=== PATIENT | male | born 1965 | race Caucasian/White ===

== ENCOUNTER 2016-05-08 17:45 | Emergency (ER) | payer OTHER ==
[2016-05-08 18:05] VITALS: BP 138/93
--- NOTE | 2016-05-08 18:35 | EDM.PDOC ---
<Obdulio Coughlin M - Last Filed: 05/08/16 18:36> ED HPI GENERAL MEDICAL PROBLEM - General Chief Complaint: General Stated Complaint: NOT FEELING GOOD Time Seen by Provider: 05/08/16 18:30 Source of Information: Reports: Patient History Limitations: Reports: No limitations - History of Present Illness INITIAL COMMENTS - FREE TEXT/NARRATIVE: This 51 yo male patient reports to the ED with a 6 month history of feeling tired, increased upper abdominal pain today and pain in his groin. The patient reports he has had his PTSD medications adjusted by [facility] with no changes. The patient reports he has been taking a lot of ibuprofen for his pulled groin ( work comp injury). The patient reports he has been drinking a lot of Coke to attempt to keep him awake. The patient reports he was seen on Friday (05/06/16) in [facility], but has not received any results at this time. The patient also reports he has had some blood in his urine and some sharp left flank pain over the past 2 days. Onset: gradual Duration: Constant, Getting worse Location: Reports: abdomen, back (left flank), other (right groin) Quality: Reports: Ache, Dull Severity: moderate Improves with: Reports: None Worsens with: Reports: None Treatments MATTE CUTTER: Reports: NSAIDS Left Shoulder Pain Score (Numeric/FACES): 3 - Related Data Allergies Allergy/AdvReac Type Severity Reaction Status Date / Time bupropion HCl Allergy Agitation Verified 05/08/16 18:00 [From Wellbutrin] Home Meds: Home Meds ALPRAZolam [Xanax] 0.5 mg PO TID PRN 08/09/13 [History] DULoxetine [Cymbalta] 60 mg PO DAILY 05/08/16 [History] Propranolol [Inderal] 30 mg PO BID 05/08/16 [History] busPIRone [Buspar] 10 mg PO BID 05/08/16 [History] Past Medical History Cardiovascular History: Reports: Hypertension Respiratory History: Reports: None Gastrointestinal History: Reports: Irritable bowel syndrome Genitourinary History: Reports: None Musculoskeletal History: Reports: None Neurological History: Reports: Concussion Psychiatric History: Reports: Anxiety, Depression, PTSD Endocrine/Metabolic History: Reports: None Hematologic History: Reports: None Immunologic History: Reports: None Oncologic (Cancer) History: Reports: None Dermatologic History: Reports: None - Infectious Disease History Infectious Disease History: Reports: Chicken pox, Measles, Mumps - Past Surgical History Head Surgeries/Procedures: Reports: None HEENT Surgical History: Reports: Tonsillectomy Social & Family History - Tobacco Use Smoking Status *Q: Current Every Day Smoker Years of Tobacco use: 30 Packs/Tins Daily: 1 Second Hand Smoke Exposure: No - Caffeine Use Caffeine Use: Reports: Soda - Alcohol Use Days Per Week of Alcohol Use: 2 - Recreational Drug Use Recreational Drug Use: No Drug Use in Last 12 Months: No - Living Situation & Occupation Living situation: Reports: , with family Occupation: employed ED ROS GENERAL - Review of Systems Review Of Systems: See Below Constitutional: Reports: fatigue HEENT: Reports: No symptoms Respiratory: Reports: No Symptoms Cardiovascular: Reports: No symptoms Endocrine: Reports: fatigue GI/Abdominal: Reports: Abdominal pain (epigastric), Diarrhea, Nausea : Reports: flank pain (left ), hematuria Musculoskeletal: Reports: no symptoms Skin: Reports: no symptoms Neurological: Reports: No Symptoms Psychiatric: Reports: Depression Hematologic/Lymphatic: Reports: no symptoms Immunologic: Reports: no symptoms ED EXAM, GENERAL - Physical Exam Exam: See Below Exam Limited By: No limitations General Appearance: alert, WD/WN, lethargic, moderate distress Eye Exam: bilateral eye: EOMI, normal inspection, PERRL Ears: normal external exam, normal canal, hearing grossly normal, normal TMs Nose: normal inspection, normal mucosa, no blood Throat/Mouth: Normal inspection, Normal lips, Normal teeth, Normal gums, Normal oropharynx, Normal voice, No airway compromise Head: atraumatic, normocephalic Neck: normal inspection, supple, non-tender, full range of motion Respiratory/Chest: no respiratory distress, lungs clear, normal breath sounds, no accessory muscle use, chest non-tender Cardiovascular: normal peripheral pulses, regular rate, rhythm, no edema, no gallop, no JVD, no murmur, no rub GI/Abdominal: normal bowel sounds, soft, no organomegaly, no distention, no abnormal bruit, no mass, tender (epigastric area) (Male) Exam: Deferred Rectal (Males) Exam: Deferred Back Exam: CVA tenderness (L) Extremities: normal inspection, normal range of motion, non-tender, normal capillary refill, no pedal edema Neurological: alert, oriented, CN II-XII intact, normal cognition, normal gait, normal reflexes, no motor/sensory deficits Psychiatric: depressed mood, flat affect Skin Exam: Warm, Dry, Intact, Normal color, No rash Lymphatic: no adenopathy Course - Vital Signs Last Recorded V/S: Last Vital Signs Temp 96.4 F 05/08/16 17:52 Pulse 89 05/08/16 17:52 Resp 16 05/08/16 17:52 BP 138/93 H 05/08/16 18:05 Pulse Ox 98 05/08/16 17:52 - Orders/Labs/Meds Labs: Laboratory Tests 05/08/16 05/08/16 05/08/16 Range/Units 18:40 18:40 18:51 WBC 8.5 (5.0-10.0) 10^3/uL RBC 4.83 (4.6-6.2) 10^6/uL Hgb 15.2 (14.0-18.0) g/dL Hct 43.3 (40.0-54.0) % MCV 89.6 (80-100) fL MCH 31.5 (27.0-34.0) pg MCHC 35.1 H (33.0-35.0) g/dL Plt Count 239 (150-450) 10^3/uL Neut % (Auto) 60.4 (42.2-75.2) % Lymph % (Auto) 26.3 (20.5-50.1) % [place] % (Auto) 10.1 H (2-8) % Eos % (Auto) 2.8 (1.0-3.0) % Baso % (Auto) 0.4 (0.0-1.0) % Sodium 132 L (135-145) mmol/L Potassium 4.1 (3.6-5.0) mmol/L Chloride 95 L (101-111) mmol/L Carbon Dioxide 30.0 (21.0-31.0) mmol/L Anion Gap 11.1 BUN 13 (7-18) mg/dL Creatinine 0.9 (0.6-1.3) mg/dL Est Cr Clr Drug Dosing 99.14 mL/min Estimated GFR (MDRD) > 60 BUN/Creatinine Ratio 14.44 Glucose 90 (74-105) mg/dL Calcium 8.9 (8.4-10.2) mg/dl Total Bilirubin 0.8 (0.2-1.0) mg/dL AST 22 (10-42) IU/L ALT 20 (10-60) IU/L Alkaline Phosphatase 73 (42-121) IU/L Total Protein 7.5 (6.7-8.2) g/dl Albumin 4.3 (3.2-5.5) g/dl Globulin 3.2 Albumin/Globulin Ratio 1.34 Amylase 40 (28-100) U/L Lipase 28 (22-51) U/L Urine Color (YELLOW) Urine Appearance (CLEAR) Urine pH (5.0-9.0) Ur Specific [place] (1.005-1.030) Urine Protein (NEGATIVE) Urine Glucose (UA) (NEGATIVE) Urine Ketones (NEGATIVE) Urine Occult Blood (NEGATIVE) Urine Nitrite (NEGATIVE) Urine Bilirubin (NEGATIVE) Urine Urobilinogen (0.2-1.0) mg/dL Ur Leukocyte Esterase (NEGATIVE) Urine RBC /HPF Urine WBC (0-5/HPF) /HPF Ur Epithelial Cells /HPF Urine Bacteria (0-FEW/HPF) /HPF Urine Opiates Screen Negative (NEGATIVE) Ur Oxycodone Screen Negative (NEGATIVE) Urine Methadone Screen Negative (NEGATIVE) Acetaminophen < 10.0 Ur Barbiturates Screen Negative (NEGATIVE) U Tricyclic Antidepress Negative (NEGATIVE) Ur Phencyclidine Scrn Negative (NEGATIVE) Ur Amphetamine Screen Negative (NEGATIVE) U Methamphetamines Scrn Negative (NEGATIVE) Urine MDMA Screen Negative (NEGATIVE) U Benzodiazepines Scrn Negative (NEGATIVE) Urine Cocaine Screen Negative (NEGATIVE) U Marijuana (THC) Screen Negative (NEGATIVE) Ethyl Alcohol < 5 mg/dL 05/08/16 Range/Units 18:51 WBC (5.0-10.0) 10^3/uL RBC (4.6-6.2) 10^6/uL Hgb (14.0-18.0) g/dL Hct (40.0-54.0) % MCV (80-100) fL MCH (27.0-34.0) pg MCHC (33.0-35.0) g/dL Plt Count (150-450) 10^3/uL Neut % (Auto) (42.2-75.2) % Lymph % (Auto) (20.5-50.1) % [place] % (Auto) (2-8) % Eos % (Auto) (1.0-3.0) % Baso % (Auto) (0.0-1.0) % Sodium (135-145) mmol/L Potassium (3.6-5.0) mmol/L Chloride (101-111) mmol/L Carbon Dioxide (21.0-31.0) mmol/L Anion Gap BUN (7-18) mg/dL Creatinine (0.6-1.3) mg/dL Est Cr Clr Drug Dosing mL/min Estimated GFR (MDRD) BUN/Creatinine Ratio Glucose (74-105) mg/dL Calcium (8.4-10.2) mg/dl Total Bilirubin (0.2-1.0) mg/dL AST (10-42) IU/L ALT (10-60) IU/L Alkaline Phosphatase (42-121) IU/L Total Protein (6.7-8.2) g/dl Albumin (3.2-5.5) g/dl Globulin Albumin/Globulin Ratio Amylase (28-100) U/L Lipase (22-51) U/L Urine Color Yellow (YELLOW) Urine Appearance Clear (CLEAR) Urine pH 6.0 (5.0-9.0) Ur Specific [place] 1.020 (1.005-1.030) Urine Protein Negative (NEGATIVE) Urine Glucose (UA) Negative (NEGATIVE) Urine Ketones Negative (NEGATIVE) Urine Occult Blood Moderate H (NEGATIVE) Urine Nitrite Negative (NEGATIVE) Urine Bilirubin Negative (NEGATIVE) Urine Urobilinogen 0.2 (0.2-1.0) mg/dL Ur Leukocyte Esterase Negative (NEGATIVE) Urine RBC 0-5 /HPF Urine WBC 0-5 (0-5/HPF) /HPF Ur Epithelial Cells Rare /HPF Urine Bacteria Few (0-FEW/HPF) /HPF Urine Opiates Screen (NEGATIVE) Ur Oxycodone Screen (NEGATIVE) Urine Methadone Screen (NEGATIVE) Acetaminophen Ur Barbiturates Screen (NEGATIVE) U Tricyclic Antidepress (NEGATIVE) Ur Phencyclidine Scrn (NEGATIVE) Ur Amphetamine Screen (NEGATIVE) U Methamphetamines Scrn (NEGATIVE) Urine MDMA Screen (NEGATIVE) U Benzodiazepines Scrn (NEGATIVE) Urine Cocaine Screen (NEGATIVE) U Marijuana (THC) Screen (NEGATIVE) Ethyl Alcohol mg/dL Meds: Medications Discontinued Medications Generic Name Dose Route Start Last Admin Trade Name Freq PRN Reason Stop Dose Admin Al Hydroxide/Mg Hydroxide 30 ml 05/08/16 20:22 05/08/16 20:25 Gi Cocktail PO 05/08/16 20:23 30 ml ONETIME ONE Administration Departure - Departure Disposition: Home, Self-Care 01 Clinical Impression: Hematuria Acid reflux disease Qualifiers: Esophagitis presence: without esophagitis Qualified Code(s): K21.9 - Gastro- esophageal reflux disease without esophagitis Fatigue Qualifiers: Fatigue type: chronic, unspecified Qualified Code(s): R53.82 - Chronic fatigue , unspecified Instructions: Gastroesophageal Reflux Disease, Adult, [id number] Forms: ED Department Discharge Additional Instructions: bland diet omeprozole 20mg one daily [facility] up with [facility], discuss medications and ongoing hematuria for past 3 years <Doretha Sanders - Last Filed: 05/08/16 21:27> Departure - Departure Time of Disposition: 21:24 Condition: good
[2016-05-08 19:05] LABS: CHLORIDE,CL 95 mmol/L (101-111); SODIUM,NA 132 mmol/L (135-145)
[2016-05-08 19:06] LABS: ACETAMINOPHEN < 10.0
[2016-05-08] MEDS ORDERED: GI Cocktail Oral Solution 30 ML PO ONE (20:22)
== END 2016-05-08 21:34 | disposition home or self-care (01) ==
LOC: DL.ED 17:45
DX: K21.9 Gastro-esophageal reflux disease without esophagitis (principal); R31.9 Hematuria, unspecified; R53.82 Chronic fatigue, unspecified; I10 Essential (primary) hypertension; F41.9 Anxiety disorder, unspecified; F32.9 Major depressive disorder, single episode, unspecified; F17.210 Nicotine dependence, cigarettes, uncomplicated; Z88.8 Allergy status to other drugs, medicaments and biological substances
CPT/HCPCS: 36415; 80053; 80305; 81001; 82150; 83690; 85025; 99283; A9270; G0480

== ENCOUNTER 2016-05-12 16:54 | Observation (INO) | payer OTHER ==
--- NOTE | 2016-05-12 17:59 | EDM.PDOC ---
<Mildred Lieberman - Last Filed: 05/12/16 19:11> ED HPI GENERAL MEDICAL PROBLEM - General Chief Complaint: General Stated Complaint: HE IS NOT FEELING GOOD Time Seen by Provider: 05/12/16 17:55 Source of Information: Reports: Patient History Limitations: Reports: No limitations - History of Present Illness INITIAL COMMENTS - FREE TEXT/NARRATIVE: Pt states that he has "not felt good " in the past few days. states that he was here last week and diagnosed with kidney stone. Now c/o lower abdominal burning and pain in legs. States that he is also having dizziness and just feels bad. Was started on blood pressure medication last week. Onset: today Onset Date: 05/12/16 Duration: Getting worse Location: Reports: abdomen Quality: Reports: Burning Improves with: Reports: None Worsens with: Reports: None Associated Symptoms: Reports: no other symptoms Right Flank Pain Score (Numeric/FACES): 4 - Related Data Allergies Allergy/AdvReac Type Severity Reaction Status Date / Time bupropion HCl Allergy Agitation Verified 05/08/16 18:00 [From Wellbutrin] Home Meds: Home Meds DULoxetine [Cymbalta] 60 mg PO DAILY 05/08/16 [History] Propranolol [Inderal] 30 mg PO DAILY 05/08/16 [History] busPIRone [Buspar] 10 mg PO BID 05/08/16 [History] Chlorthalidone 50 mg PO DAILY 05/12/16 [History] ClonazePAM [KlonoPIN] 1 tab PO TID PRN 05/12/16 [History] Omeprazole 1 tab PO DAILY 05/12/16 [History] Past Medical History Cardiovascular History: Reports: Hypertension Respiratory History: Reports: None Gastrointestinal History: Reports: GERD, Irritable bowel syndrome Genitourinary History: Reports: Renal calculus Musculoskeletal History: Reports: Back pain, chronic Neurological History: Reports: Concussion Psychiatric History: Reports: Anxiety, Depression, PTSD Endocrine/Metabolic History: Reports: None Hematologic History: Reports: None Immunologic History: Reports: None Oncologic (Cancer) History: Reports: None Dermatologic History: Reports: None - Infectious Disease History Infectious Disease History: Reports: Chicken pox, Measles, Mumps - Past Surgical History Head Surgeries/Procedures: Reports: None HEENT Surgical History: Reports: Tonsillectomy Social & Family History - Family History Family Medical History: Noncontributory - Tobacco Use Smoking Status *Q: Current Every Day Smoker Years of Tobacco use: 30 Packs/Tins Daily: 1 Used Tobacco, but Quit: No Second Hand Smoke Exposure: Yes - Caffeine Use Caffeine Use: Reports: Soda - Alcohol Use Days Per Week of Alcohol Use: 2 Number of Drinks Per Day: 2 Total Drinks Per Week: 4 - Recreational Drug Use Recreational Drug Use: No Drug Use in Last 12 Months: No - Living Situation & Occupation Living situation: Reports: , with family Occupation: employed ED ROS GENERAL - Review of Systems Review Of Systems: See Below Constitutional: Reports: malaise Endocrine: Reports: fatigue GI/Abdominal: Reports: Abdominal pain Neurological: Reports: Dizziness ED EXAM, GENERAL - Physical Exam Exam: See Below Exam Limited By: No limitations General Appearance: alert, WD/WN, no apparent distress Eye Exam: bilateral eye: PERRL Head: atraumatic, normocephalic Neck: normal inspection, supple, non-tender, full range of motion Respiratory/Chest: no respiratory distress, lungs clear, normal breath sounds, no accessory muscle use, chest non-tender Cardiovascular: normal peripheral pulses, regular rate, rhythm, no edema, no gallop, no JVD, no murmur, no rub GI/Abdominal: normal bowel sounds, soft, no organomegaly, no distention, no abnormal bruit, no mass, tender (lower abdomen) Back Exam: full range of motion, CVA tenderness (R) Neurological: alert, oriented, CN II-XII intact, normal cognition, normal gait, normal reflexes, no motor/sensory deficits Course - Vital Signs Last Recorded V/S: Last Vital Signs Temp 36.4 C 05/12/16 17:03 Pulse 93 05/12/16 17:03 Resp 20 05/12/16 17:03 BP 140/103 H 05/12/16 17:03 Pulse Ox 100 05/12/16 17:03 - Orders/Labs/Meds Orders: Active Orders 24 hr Category Date Time Status BMP [BASIC METABOLIC PANEL,BMP] [CHEM] Stat Lab 05/12/16 19:45 Ordered Saline Lock Insert [OM.PC] Stat Oth 05/12/16 18:05 Ordered Labs: Laboratory Tests 05/12/16 05/12/16 05/12/16 Range/Units 18:08 18:08 18:30 WBC 6.9 (5.0-10.0) 10^3/uL RBC 4.73 (4.6-6.2) 10^6/uL Hgb 14.9 (14.0-18.0) g/dL Hct 40.0 (40.0-54.0) % MCV 84.6 (80-100) fL MCH 31.5 (27.0-34.0) pg MCHC 37.3 H (33.0-35.0) g/dL Plt Count 222 (150-450) 10^3/uL Neut % (Auto) 55.0 (42.2-75.2) % Lymph % (Auto) 27.4 (20.5-50.1) % [place] % (Auto) 13.9 H (2-8) % Eos % (Auto) 3.3 H (1.0-3.0) % Baso % (Auto) 0.4 (0.0-1.0) % Sodium 123 L (135-145) mmol/L Potassium 3.1 L (3.6-5.0) mmol/L Chloride 86 L (101-111) mmol/L Carbon Dioxide 28.0 (21.0-31.0) mmol/L Anion Gap 12.1 BUN 9 (7-18) mg/dL Creatinine 0.7 (0.6-1.3) mg/dL Est Cr Clr Drug Dosing TNP Estimated GFR (MDRD) > 60 BUN/Creatinine Ratio 12.85 Glucose 96 (74-105) mg/dL Calcium 8.8 (8.4-10.2) mg/dl Total Bilirubin 0.8 (0.2-1.0) mg/dL AST 19 (10-42) IU/L ALT 19 (10-60) IU/L Alkaline Phosphatase 77 (42-121) IU/L Total Protein 7.0 (6.7-8.2) g/dl Albumin 4.0 (3.2-5.5) g/dl Globulin 3.0 Albumin/Globulin Ratio 1.33 Urine Color Yellow (YELLOW) Urine Appearance Clear (CLEAR) Urine pH 8.5 (5.0-9.0) Ur Specific [place] 1.015 (1.005-1.030) Urine Protein Negative (NEGATIVE) Urine Glucose (UA) Negative (NEGATIVE) Urine Ketones Negative (NEGATIVE) Urine Occult Blood Small H (NEGATIVE) Urine Nitrite Negative (NEGATIVE) Urine Bilirubin Negative (NEGATIVE) Urine Urobilinogen 0.2 (0.2-1.0) mg/dL Ur Leukocyte Esterase Negative (NEGATIVE) Urine RBC 5-10 H /HPF Urine WBC 0-5 (0-5/HPF) /HPF Ur Epithelial Cells Rare /HPF Urine Bacteria Few (0-FEW/HPF) /HPF Meds: Medications Discontinued Medications Generic Name Dose Route Start Last Admin Trade Name Cedricq PRN Reason Stop Dose Admin Sodium Chloride 1,000 mls @ 999 mls/hr 05/12/16 18:05 05/12/16 18:24 Normal Saline IV 05/12/16 19:05 999 mls/hr .BOLUS ONE Administration - Re-Assessments/Exams Free Text/Narrative Re-Assessment/Exam: 05/12/16 19:[address] Holcomb for potential admission, will come to evaluate patient 05/12/16 19:11 Dr. Holcomb, wants repeat BMP after 1 liter fluid is in. wants to be called with results. Departure - Departure Disposition: Refer to Observation Clinical Impression: Hyponatremia syndrome, Hypokalemia Forms: ED Department Discharge <Manav Cramer - Last Filed: 05/12/16 19:18> Course - Re-Assessments/Exams Free Text/Narrative Re-Assessment/Exam: 05/12/16 19:[address] Kim who kindly admitted Pt to observation Departure - Departure Time of Disposition: 19:16 Condition: good
[2016-05-12] MEDS ORDERED: Sodium Chloride 0.9% 1,000 ML IV ONE ×2 (18:05→19:24)
[2016-05-12 18:33] LABS: CHLORIDE,CL 86 mmol/L (101-111); SODIUM,NA 123 mmol/L (135-145)
[2016-05-12] MEDS ORDERED: Ketorolac 30 MG/ML SDV IVPUSH ONE (19:24)
[2016-05-12] MEDS ORDERED: Ondansetron 4 MG/2 ML SDV IVPUSH PRN (19:25)
[2016-05-12] MEDS ORDERED: Ketorolac 30 MG/ML SDV IM PRN (19:25)
[2016-05-12] MEDS ORDERED: Potassium Chloride 10% 20 MEQ/15 ML Soln 15 ML UD Cup PO ONE (19:31)
[2016-05-12] MEDS ORDERED: ClonazePAM 0.5 MG Tab PO ONE (19:35)
[2016-05-12] MEDS: Sodium Chloride 0.9% 1,000 ML IV SCH (20:01)
[2016-05-12 20:09] LABS: CHLORIDE,CL 86 mmol/L (101-111); SODIUM,NA 123 mmol/L (135-145)
[2016-05-12] MEDS: Heparin Sodium 5,000 Units/ML Vial SUBCUT SCH (21:42)
[2016-05-13] MEDS: Sodium Chloride 0.9% 1,000 ML IV SCH ×2 (02:47→11:00)
[2016-05-13] MEDS: Heparin Sodium 5,000 Units/ML Vial SUBCUT SCH ×2 (05:53→14:07)
[2016-05-13 07:06] LABS: CHLORIDE,CL 89 mmol/L (101-111); SODIUM,NA 126 mmol/L (135-145)
[2016-05-13] MEDS ORDERED: Ibuprofen 400 MG Tab PO PRN (09:04)
[2016-05-13] MEDS ORDERED: ClonazePAM 0.5 MG Tab PO PRN (09:22)
[2016-05-13] MEDS ORDERED: DULoxetine 30 MG Cap PO SCH (09:45)
[2016-05-13] MEDS ORDERED: busPIRone 15 MG Tab PO SCH (09:45)
[2016-05-13] MEDS: Sodium Chloride 1 GM Tab PO SCH ×2 (10:46→14:04)
[2016-05-13 11:04] VITALS: BP 141/89
--- NOTE | 2016-05-13 13:59 | HP ---
CHIEF COMPLAINT: Generalized body malaise. HISTORY OF PRESENTING ILLNESS: Mr. Ricardo Murguia is a 51-year-old man with medical history of hypertension, depression, anxiety disorder. The patient presented to the emergency room because of generalized body malaise. This has been going on for 2 days. Complains of dizziness, which is lightheadedness, it happens mostly when he stands up and better when laying down. Denies having chest pain. Denies abdominal pain, dysuria, frequency, or micturition. No diarrhea. No constipation. The patient was recently seen in [facility], had x- ray that suggested possible kidney stones. He was told that he should come back to the clinic to be ordered for a CT scan (patient refused to have it done ordered here. I offered him to do that). REVIEW OF SYSTEMS: A 10-point review of system performed. No other pertinent findings except as noted above. PAST MEDICAL HISTORY: 1. Depression. 2. Hypertension. 3. Anxiety. SOCIAL HISTORY: Does smoke everyday. No significant alcohol use. FAMILY HISTORY: Reviewed and considered noncontributory. OBJECTIVE: Vital Signs: Reviewed. Blood pressure is within normal limits. General: The patient is alert, oriented to place, time, and person. Head: Atraumatic and normocephalic. Ear, Nose, and Throat: Unremarkable. Neck: Supple. Chest: Clear to auscultation. CVS: Regular rate and rhythm. Abdomen: Soft, nontender. Extremities: No pedal edema. No finger clubbing. Skin: No rash. Neuro: Grossly nonfocal. Endocrine: No thyromegaly. LABORATORY DATA: Sodium is 123, potassium is 3.4. ASSESSMENT: 1. Hyponatremia, this is likely due to diuretic hydrochlorothiazide. 2. Hypokalemia. Serum potassium is low down to 3.4. Again, this is likely due to hydrochlorothiazide. 3. Generalized body malaise. Probably related to electrolyte abnormalities. 4. Hypertension, has been on propranolol. Recently, hydrochlorothiazide was added. PLAN: 1. Discontinue hydrochlorothiazide. 2. Start intravenous normal saline. 3. Obtain repeat basic metabolic panel. 4. Correct potassium deficits. 5. Non-narcotic analgesics for headaches. 6. Chart reviewed, discussed with emergency room provider. [facility] /[id number]
[2016-05-13 14:32] LABS: CHLORIDE,CL 97 mmol/L (101-111); SODIUM,NA 131 mmol/L (135-145)
--- NOTE | 2016-05-14 04:50 | DISCH ---
FINAL DIAGNOSES: 1. Hyponatremia. 2. Hypokalemia. 3. Low back pain. 4. Dizziness. 5. Hypertension. SUMMARY OF HOSPITAL COURSE: Ricardo Murguia is a 51-year-old man who presented to the emergency room with complaint of generalized body malaise, headache, dizziness which he described as lightheadedness. The lightheadedness was worse when he stood up. He was not having chest pain. He did indicate he was having low back pain but has been told by PA that he has kidney stones. The patient refused to have CT scan of the abdomen. He insisted that PA should be the one to order it (because of financial reasons). The patient got admitted to the hospital, was started on intravenous fluid normal saline. His sodium improved. He was also started on salt supplement and we discontinued hydrochlorothiazide that was not restarted. The patient's blood pressure is within acceptable limit. He will be discharged home and has been advised to follow up with PA and primary care provider. He will have repeat basic metabolic panel as outpatient. PHYSICAL EXAMINATION: General: At discharge, the patient is alert, oriented to place, time, and person. Head: Atraumatic and normocephalic. Ear, Nose, and Throat: Unremarkable. Neck: Supple. Chest: Clear to auscultation. Extremities: No pedal edema. Skin: No rash. [facility] /[id number]
[2016-05-14] MEDS ORDERED: Omeprazole 20 MG Cap.CR PO SCH (06:00)
[2016-05-14] MEDS ORDERED: Propranolol 10 MG Tab PO SCH (09:00)
== END 2016-05-13 15:55 | disposition home or self-care (01) ==
LOC: DL.ED 16:54 → DL.MS 19:25 → UNDOADMOB 19:40 → DL.MS 19:40
PROVIDERS: ADMIT Hospitalist; ATTEND Hospitalist
DX: E22.2 Syndrome of inappropriate secretion of antidiuretic hormone (principal); E87.6 Hypokalemia; I10 Essential (primary) hypertension; F41.8 Other specified anxiety disorders; R42 Dizziness and giddiness; F17.210 Nicotine dependence, cigarettes, uncomplicated
CPT/HCPCS: 36415; 80048; 80053; 81001; 85025; 96361; 96372; 96374; 99284; A9270; G0378; J1644; J1885; J7030

== ENCOUNTER 2016-10-31 06:13 | Day surgery (SDC) | payer OTHER ==
[~2016-10-31 06:13] MED LIST: Dextrose 5%-0.45% NaCl 1,000 ML IV SCH; Sodium Chloride 0.9% 10 ML Syringe FLUSH PRN
[2016-10-31] MEDS ORDERED: Midazolam 1 MG/ML 2 ML SDV IV ONE ×7 (06:14→08:22)
[2016-10-31] MEDS ORDERED: fentaNYL 100 MCG/2 ML SDV IV ONE ×4 (06:14→08:23)
[2016-10-31] MEDS ORDERED: Midazolam 1 MG/ML 2 ML SDV ONE (06:16)
[2016-10-31] MEDS ORDERED: fentaNYL 100 MCG/2 ML SDV ONE (06:17)
[2016-10-31 09:08] VITALS: BP 94/61
--- NOTE | 2016-10-31 09:36 | OR ---
DATE: 10/31/2016 PROCEDURE: Total colonoscopy and multiple cold snare polypectomies. INSTRUMENT USED: [id number] Olympus video colonoscope. PREMEDICATIONS: Fentanyl 150 mcg intravenous, Versed 4 mg intravenous. Nasal O2 cannula. The procedure was done under pulse oximetry, BP recording, and bus person dishwasher. INDICATION: Screening colonoscopic examination is done for detection of any polypoid lesions and removal, endoscopic hemostasis therapy if needed. DESCRIPTION OF PROCEDURE: Initial rectal exam was unremarkable. Rigid anoscopy was normal. The colonoscope was passed with ease. Few scattered diverticula were noted in the distal left colon. In the sigmoid colon, 3-mm sized benign- appearing polyp was noted, photograph was taken, cold snare polypectomy was done. The tissue was retrieved and sent for histopathology. The colonoscope was passed with ease up to the ileocecal area, photographs were taken of the normal-appearing cecum identified by landmarks of appendiceal orifice and double- bulged ileocecal folds. No bleeding was noted from any of the visualized areas at the commencement of the exam. No stricture. No vascular ectasia. No large isolated ulcerations seen. No evidence of diffuse inflammatory bowel disease in the form of friability, contact bleeding, or ulcerations. Probing the proximal sides of folds and flexures, using adequate distention and clearing up the stool material, withdrawal of the scope was made. A 3-mm sized benign-appearing polyps were noted in the proximal ascending colon, and hepatic flexure area, cold snare polypectomies were done, the tissues were retrieved and sent for any histopathology. No bleeding was noted from any of the visualized areas at the completion of examination. IMPRESSION: 1. Diverticulosis. 2. Multiple diminutive colonic polyps. The patient tolerated the procedure well. [facility] /[id number]
--- NOTE | 2016-10-31 10:42 | LETTER ---
10/31/2016 Dominick Arroyo MD [address] [id number] RE: RICARDO MURGUIA : [address] Arroyo: Mr. Ricardo Murguia had colonoscopic examination done this morning and he tolerated the procedure well. I herewith send a copy of the endoscopy note and photographs for your review. Thank you. Sincerely, [facility] /[id number]
== END 2016-10-31 10:37 | disposition home or self-care (01) ==
LOC: DL.ENDO 06:13
PROVIDERS: ATTEND Internal Medicine Gastroenterology
PROC: 0DBL8ZZ Excision of Transverse Colon, Via Natural or Artificial Opening Endoscopic (ICD-10-PCS; principal; 2016-10-31)
PROC: 0DBK8ZZ Excision of Ascending Colon, Via Natural or Artificial Opening Endoscopic (ICD-10-PCS; 2016-10-31)
PROC: 0DBN8ZZ Excision of Sigmoid Colon, Via Natural or Artificial Opening Endoscopic (ICD-10-PCS; 2016-10-31)
DX: Z12.11 Encounter for screening for malignant neoplasm of colon (principal); D12.2 Benign neoplasm of ascending colon; D12.3 Benign neoplasm of transverse colon; K63.5 Polyp of colon; F32.9 Major depressive disorder, single episode, unspecified; F41.9 Anxiety disorder, unspecified; K21.9 Gastro-esophageal reflux disease without esophagitis; I10 Essential (primary) hypertension; Z90.89 Acquired absence of other organs; Z79.899 Other long term (current) drug therapy; Z79.1 Long term (current) use of non-steroidal anti-inflammatories (NSAID); Z88.8 Allergy status to other drugs, medicaments and biological substances
CPT/HCPCS: 45385; J2250; J3010; J7042; 88305

== ENCOUNTER 2016-12-12 16:34 | Emergency (ER) | payer OTHER ==
[2016-12-12] MEDS ORDERED: HYDROmorphone 1 MG/ML Syringe IVPUSH ONE (16:49)
[2016-12-12] MEDS ORDERED: Ketorolac 30 MG/ML SDV IVPUSH ONE (16:49)
--- NOTE | 2016-12-12 16:50 | EDM.PDOC ---
ED HPI GENERAL MEDICAL PROBLEM - General Chief Complaint: Back Pain or Injury Stated Complaint: [id number] WORKERS COMP LEFT SIDE TO KNEE LOWER BACK Time Seen by Provider: 12/12/16 16:48 Source of Information: Reports: Patient History Limitations: Reports: No Limitations - History of Present Illness INITIAL COMMENTS - FREE TEXT/NARRATIVE: 51 yo white male c/o left low back pain on twisting that radiates from buttock to left thigh. PMHx. Same Onset: Today Onset Date: 12/12/16 Onset Time: 16:00 Duration: Minutes: Location: Reports: Back, Lower Extremity, Left Quality: Reports: Ache Severity: Moderate Improves with: Reports: None Worsens with: Reports: None Context: Reports: Activity Associated Symptoms: Reports: No Other Symptoms Back Pain Score (Numeric/FACES): 8 - Related Data Allergies Allergy/AdvReac Type Severity Reaction Status Date / Time bupropion HCl Allergy Agitation Verified 12/12/16 16:39 [From Wellbutrin] hydrochlorothiazide AdvReac Dizziness Verified 12/12/16 16:39 Home Meds: Home Meds ClonazePAM [KlonoPIN] 1 tab PO TID PRN 05/12/16 [History] Past Medical History HEENT History: Reports: Impaired Vision Cardiovascular History: Reports: Hypertension Respiratory History: Reports: None Gastrointestinal History: Reports: GERD, Helicobacter Pylori, Irritable Bowel Syndrome Genitourinary History: Reports: None Musculoskeletal History: Reports: Fracture, Other (See Below) Other Musculoskeletal History: SCIATICA, CARPEL TUNNEL, FX BILATERAL ANKLES (NO SURGERY) Neurological History: Reports: Concussion Psychiatric History: Reports: Anxiety, Depression, PTSD Endocrine/Metabolic History: Reports: Obesity/BMI 30+, Other (See Below) Other Endocrine/Metabolic History: METABOLIC SYNDROME Hematologic History: Reports: None Immunologic History: Reports: None Oncologic (Cancer) History: Reports: None Dermatologic History: Reports: None - Infectious Disease History Infectious Disease History: Reports: Chicken Pox, Measles, Mumps - Past Surgical History Musculoskeletal Surgical History: Social & Family History - Family History Family Medical History: Noncontributory Neurological: Reports: Alzheimers Disease Endocrine/Metabolic: Reports: Osteoporosis Oncologic: Reports: Breast - Tobacco Use Smoking Status *Q: Current Every Day Smoker Years of Tobacco use: 30 Packs/Tins Daily: 1 Used Tobacco, but Quit: No Second Hand Smoke Exposure: No - Caffeine Use Caffeine Use: Reports: Soda Other Caffeine Use: 5 coke a day - Alcohol Use Days Per Week of Alcohol Use: 1 Number of Drinks Per Day: 3 Total Drinks Per Week: 3 - Recreational Drug Use Recreational Drug Use: No Drug Use in Last 12 Months: No - Living Situation & Occupation Living situation: Reports: , with Family Occupation: Employed ED ROS GENERAL - Review of Systems Review Of Systems: See Below Constitutional: Reports: No Symptoms HEENT: Reports: No Symptoms Respiratory: Reports: No Symptoms Cardiovascular: Reports: No Symptoms Endocrine: Reports: No Symptoms GI/Abdominal: Reports: No Symptoms : Reports: No Symptoms Musculoskeletal: Reports: Back Pain (left low back) Skin: Reports: No Symptoms Neurological: Reports: Gait Disturbance Psychiatric: Reports: No Symptoms Hematologic/Lymphatic: Reports: No Symptoms Immunologic: Reports: No Symptoms ED EXAM, GENERAL - Physical Exam Exam: See Below Exam Limited By: No Limitations General Appearance: Alert, No Apparent Distress Eye Exam: Bilateral Eye: PERRL Nose: Normal Inspection Throat/Mouth: Normal Inspection Head: Atraumatic, Normocephalic Neck: Normal Inspection Respiratory/Chest: No Respiratory Distress, Lungs Clear Cardiovascular: Normal Peripheral Pulses, Regular Rate, Rhythm Peripheral Pulses: 2+: Femoral (L), Femoral (R) GI/Abdominal: Normal Bowel Sounds (Male) Exam: No Hernia Back Exam: Normal Inspection, Paraspinal Tenderness, Other (left lower) Extremities: Normal Inspection Neurological: Alert, Oriented, CN II-XII Intact Psychiatric: Normal Affect Skin Exam: Warm, Dry Lymphatic: No Adenopathy Course - Vital Signs Last Recorded V/S: Last Vital Signs Temp 35.9 C 12/12/16 16:43 Pulse 72 12/12/16 17:21 Resp 18 12/12/16 17:21 BP 141/96 H 12/12/16 17:21 Pulse Ox 96 12/12/16 17:21 - Orders/Labs/Meds Orders: Active Orders 24 hr Category Date Time Status UA W/MICROSCOPIC [URIN] Stat Lab 12/12/16 17:15 Received Sodium Chloride 0.9% [Normal Saline] 1,000 ml Med 12/12/16 17:00 Active IV ASDIRECTED Medication Orders Sodium Chloride (Normal Saline) 1,000 mls @ 150 mls/hr IV ASDIRECTED BOBBY Last Admin: 12/12/16 17:05 Dose: 150 mls/hr Labs: Laboratory Tests 12/12/16 12/12/16 Range/Units 16:58 16:58 WBC 8.2 (5.0-10.0) 10^3/uL RBC 4.56 L (4.6-6.2) 10^6/uL Hgb 14.3 (14.0-18.0) g/dL Hct 41.1 (40.0-54.0) % MCV 90.1 D (80-100) fL MCH 31.4 (27.0-34.0) pg MCHC 34.8 (33.0-35.0) g/dL Plt Count 252 (150-450) 10^3/uL Neut % (Auto) 58.3 (42.2-75.2) % Lymph % (Auto) 27.0 (20.5-50.1) % [place] % (Auto) 10.5 H (2-8) % Eos % (Auto) 3.7 H (1.0-3.0) % Baso % (Auto) 0.5 (0.0-1.0) % Sodium 135 (135-145) mmol/L Potassium 3.9 (3.6-5.0) mmol/L Chloride 103 (101-111) mmol/L Carbon Dioxide 23.0 (21.0-31.0) mmol/L Anion Gap 12.9 BUN 9 (7-18) mg/dL Creatinine 0.7 (0.6-1.3) mg/dL Est Cr Clr Drug Dosing 127.46 mL/min Estimated GFR (MDRD) > 60 BUN/Creatinine Ratio 12.85 Glucose 100 (74-105) mg/dL Calcium 8.6 (8.4-10.2) mg/dl Total Bilirubin 0.6 (0.2-1.0) mg/dL AST 19 (10-42) IU/L ALT 17 (10-60) IU/L Alkaline Phosphatase 76 (42-121) IU/L Total Protein 7.2 (6.7-8.2) g/dl Albumin 4.2 (3.2-5.5) g/dl Globulin 3.0 Albumin/Globulin Ratio 1.40 Meds: Medications Generic Name Dose Route Start Last Admin Trade Name Freq PRN Reason Stop Dose Admin Sodium Chloride 1,000 mls @ 150 mls/hr 12/12/16 17:00 12/12/16 17:05 Normal Saline IV 150 mls/hr ASDIRECTED BOBBY Administration Discontinued Medications Generic Name Dose Route Start Last Admin Trade Name Joshua PRN Reason Stop Dose Admin Hydromorphone HCl 1 mg 12/12/16 16:49 12/12/16 16:55 Dilaudid IVPUSH 12/12/16 16:50 1 mg ONETIME ONE Administration Ketorolac Tromethamine 30 mg 12/12/16 16:49 12/12/16 16:56 Toradol IVPUSH 12/12/16 16:50 30 mg ONETIME ONE Administration Departure - Departure Time of Disposition: 17:44 Disposition: Home, Self-Care 01 Condition: Fair Clinical Impression: Lumbar degenerative disc disease - Discharge Information Instructions: Back Pain, Adult, [id number] Forms: ED Department Discharge Additional Instructions: Rest Moist Heat to Area TID X 15mins. For Pain: NAPROXSYN 500mg BID w/ food # 30 NEURONTIN 300mg TID # 30 F/U w/ PCP for evaluation by user support specialist and Physical Therapy - My Orders Last 24 Hours: My Active Orders 12/12/16 17:00 Sodium Chloride 0.9% [Normal Saline] 1,000 ml IV ASDIRECTED 12/12/16 17:15 UA W/MICROSCOPIC [URIN] Stat - Assessment/Plan Last 24 Hours: My Active Orders 12/12/16 17:00 Sodium Chloride 0.9% [Normal Saline] 1,000 ml IV ASDIRECTED 12/12/16 17:15 UA W/MICROSCOPIC [URIN] Stat
[2016-12-12] MEDS ORDERED: Sodium Chloride 0.9% 1,000 ML IV SCH (17:00)
[2016-12-12 17:21] LABS: CHLORIDE,CL 103 mmol/L (101-111); SODIUM,NA 135 mmol/L (135-145)
[2016-12-12 17:42] VITALS: BP 128/87
== END 2016-12-12 18:15 | disposition home or self-care (01) ==
LOC: DL.ED 16:34
DX: M51.36 Other intervertebral disc degeneration, lumbar region (principal); F17.210 Nicotine dependence, cigarettes, uncomplicated; Z88.8 Allergy status to other drugs, medicaments and biological substances
CPT/HCPCS: 36415; 72131; 72192; 80053; 81001; 85025; 96361; 96374; 96375; 99284; J1170; J1885; J7030

== ENCOUNTER 2017-03-20 17:20 | Emergency (ER) | payer OTHER ==
[2017-03-20 18:31] VITALS: BP 158/103
== END 2017-03-20 19:15 | disposition left against medical advice (07) ==
LOC: DL.ED 17:20
DX: Z53.21 Procedure and treatment not carried out due to patient leaving prior to being seen by health care provider (principal)

== ENCOUNTER 2017-04-01 17:36 | Emergency (ER) | payer OTHER ==
[2017-04-01 17:51] VITALS: BP 159/97
--- NOTE | 2017-04-01 17:57 | EDM.PDOC ---
ED HPI GENERAL MEDICAL PROBLEM - General Stated Complaint: [id number] DIZZY NOT FEELING WELL SPOTS IN EYES Time Seen by Provider: 04/01/17 17:45 Source of Information: Reports: Patient History Limitations: Reports: No Limitations - History of Present Illness INITIAL COMMENTS - FREE TEXT/NARRATIVE: This 52 yo male patient reports to the ED with a 1 1/2 week history of dizziness , a frontal headache and not feeling well. The patient reports he did come into the ED for the same symptoms 12 days ago, but has not followed-up with his primary care facility. The patient reports he has been having increased stress in his life due to going through bankruptcy and his mother being in hospice. The patient reports he has been seeing "spots" each afternoon starting at about 1700. The patient reports his symptoms get better with ibuprofen. The patient reports he has been smoking more cigarettes over the past couple of weeks, but has not been drinking ETOH or using any drugs. 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 Head Pain Score (Numeric/FACES): 5 - Related Data Allergies Allergy/AdvReac Type Severity Reaction Status Date / Time bupropion HCl Allergy Agitation Verified 04/01/17 17:51 [From Wellbutrin] hydrochlorothiazide AdvReac Dizziness Verified 04/01/17 17:51 Home Meds: Home Meds ClonazePAM [KlonoPIN] 1 tab PO TID PRN 05/12/16 [History] Past Medical History HEENT History: Reports: Impaired Vision Cardiovascular History: Reports: Hypertension Respiratory History: Reports: None Gastrointestinal History: Reports: GERD, Helicobacter Pylori, Irritable Bowel Syndrome Genitourinary History: Reports: None Musculoskeletal History: Reports: Fracture, Other (See Below) Other Musculoskeletal History: SCIATICA, CARPEL TUNNEL, FX BILATERAL ANKLES (NO SURGERY) Neurological History: Reports: Concussion Psychiatric History: Reports: Anxiety, Depression, PTSD Endocrine/Metabolic History: Reports: Obesity/BMI 30+, Other (See Below) Other Endocrine/Metabolic History: METABOLIC SYNDROME Hematologic History: Reports: None Immunologic History: Reports: None Oncologic (Cancer) History: Reports: None Dermatologic History: Reports: None - Infectious Disease History Infectious Disease History: Reports: Chicken Pox, Measles, Mumps - Past Surgical History Musculoskeletal Surgical History: Social & Family History - Family History Family Medical History: Noncontributory Neurological: Reports: Alzheimers Disease Endocrine/Metabolic: Reports: Osteoporosis Oncologic: Reports: Breast - Tobacco Use Smoking Status *Q: Current Every Day Smoker Years of Tobacco use: 30 Packs/Tins Daily: 1 Used Tobacco, but Quit: No Second Hand Smoke Exposure: No - Caffeine Use Caffeine Use: Reports: Soda Other Caffeine Use: 5 coke a day - Alcohol Use Days Per Week of Alcohol Use: 1 Number of Drinks Per Day: 3 Total Drinks Per Week: 3 - Recreational Drug Use Recreational Drug Use: No Drug Use in Last 12 Months: No - Living Situation & Occupation Living situation: Reports: , with Family Occupation: Employed ED ROS GENERAL - Review of Systems Review Of Systems: ROS reveals no pertinent complaints other than HPI. ED EXAM, GENERAL - Physical Exam Exam: See Below Exam Limited By: No Limitations General Appearance: Alert, WD/WN, Moderate Distress Eye Exam: Bilateral Eye: EOMI, Normal Inspection, PERRL Ears: Normal External Exam, Normal Canal, Hearing Grossly Normal, Normal TMs Nose: Normal Inspection, Normal Mucosa, No Blood Throat/Mouth: Normal Inspection, Normal Lips, Normal Teeth, Normal Gums, Normal Oropharynx, Normal Voice, No Airway Compromise Head: Atraumatic, Normocephalic Neck: Normal Inspection, Supple, Non-Tender, Full Range of Motion Respiratory/Chest: No Respiratory Distress, Lungs Clear, Normal Breath Sounds, No Accessory Muscle Use, Chest Non-Tender Cardiovascular: Normal Peripheral Pulses, Regular Rate, Rhythm, No Edema, No Gallop, No JVD, No Murmur, No Rub GI/Abdominal: Normal Bowel Sounds, Soft, Non-Tender, No Organomegaly, No Distention, No Abnormal Bruit, No Mass (Male) Exam: Deferred Rectal (Males) Exam: Deferred Back Exam: Normal Inspection, Full Range of Motion, NT Extremities: Normal Inspection, Normal Range of Motion, Non-Tender, Normal Capillary Refill, No Pedal Edema Neurological: Alert, Oriented, CN II-XII Intact, Normal Cognition, Normal Gait Psychiatric: Normal Affect, Normal Mood Skin Exam: Warm, Dry, Intact, Normal Color, No Rash Lymphatic: No Adenopathy Course - Vital Signs Last Recorded V/S: Last Vital Signs Temp 36.8 C 02/13/18 17:42 Pulse 88 04/01/17 17:42 Resp 16 04/01/17 17:42 BP 159/97 H 04/01/17 17:42 Pulse Ox 97 04/01/17 17:42 - Orders/Labs/Meds Orders: Active Orders 24 hr Category Date Time Status EKG Documentation Completion [RC] URGENT Care 04/01/17 17:50 Active Chest 1V Frontal [CR] Urgent Exams 04/01/17 17:50 Taken DRUG SCREEN URINE BIORAD [URCHEM] Stat Lab 04/01/17 17:50 Ordered UA W/MICROSCOPIC [URIN] Stat Lab 04/01/17 17:50 Ordered Labs: Laboratory Tests 04/01/17 04/01/17 Range/Units 17:59 17:59 WBC 9.2 (5.0-10.0) 10^3/uL RBC 4.62 (4.6-6.2) 10^6/uL Hgb 14.0 (14.0-18.0) g/dL Hct 40.6 (40.0-54.0) % MCV 87.9 (80-100) fL MCH 30.3 (27.0-34.0) pg MCHC 34.5 (33.0-35.0) g/dL Plt Count 237 (150-450) 10^3/uL Neut % (Auto) 65.6 (42.2-75.2) % Lymph % (Auto) 23.6 (20.5-50.1) % [place] % (Auto) 8.4 H (2-8) % Eos % (Auto) 2.1 (1.0-3.0) % Baso % (Auto) 0.3 (0.0-1.0) % Sodium 132 L (135-145) mmol/L Potassium 3.5 L (3.6-5.0) mmol/L Chloride 100 L (101-111) mmol/L Carbon Dioxide 22.0 (21.0-31.0) mmol/L Anion Gap 13.5 BUN 11 (7-18) mg/dL Creatinine 0.7 (0.6-1.3) mg/dL Est Cr Clr Drug Dosing 126.01 mL/min Estimated GFR (MDRD) > 60 BUN/Creatinine Ratio 15.71 Glucose 99 (74-105) mg/dL Calcium 8.5 (8.4-10.2) mg/dl Total Bilirubin 0.7 (0.2-1.0) mg/dL AST 19 (10-42) IU/L ALT 18 (10-60) IU/L Alkaline Phosphatase 64 (42-121) IU/L Troponin I < 0.02 (0.00-0.02) ng/ml Total Protein 7.2 (6.7-8.2) g/dl Albumin 4.1 (3.2-5.5) g/dl Globulin 3.1 Albumin/Globulin Ratio 1.32 Meds: Medications Discontinued Medications Generic Name Dose Route Start Last Admin Trade Name Freq PRN Reason Stop Dose Admin Meclizine HCl 25 mg 04/01/17 19:01 Antivert PO 04/01/17 19:02 ONETIME ONE Departure - Departure Time of Disposition: 19:07 Disposition: Home, Self-Care 01 Condition: Fair Clinical Impression: Vertigo, Anxiety - Discharge Information Instructions: Vertigo, Dhaf-rb-Auch, Panic Attacks, [id number]-Gimz Care Plan Goals: The patient was advised of the examination, EKG, x-ray and lab results during the visit. The patient was given a dose of Meclizine while in the ED. The patient was given a script for Meclizine (25 mg) #10 to take 1 by mouth 2 times per day as needed. If the patient has any additional symptoms or concerns, the patient should follow-up with his primary care facility or return to the emergency department. - My Orders Last 24 Hours: My Active Orders 04/01/17 17:50 EKG Documentation Completion [RC] URGENT Chest 1V Frontal [CR] Urgent DRUG SCREEN URINE BIORAD [URCHEM] Stat UA W/MICROSCOPIC [URIN] Stat - Assessment/Plan Last 24 Hours: My Active Orders 04/01/17 17:50 EKG Documentation Completion [RC] URGENT Chest 1V Frontal [CR] Urgent DRUG SCREEN URINE BIORAD [URCHEM] Stat UA W/MICROSCOPIC [URIN] Stat
[2017-04-01 18:31] LABS: CHLORIDE,CL 100 mmol/L (101-111); SODIUM,NA 132 mmol/L (135-145)
[2017-04-01] MEDS ORDERED: Meclizine 12.5 MG Tab PO ONE (19:01)
--- NOTE | 2017-04-02 18:53 | EKG ---
04/01/2017 - INA GRANT I reviewed the EKG and agree with the machine's reading. [facility] /[id number]
== END 2017-04-01 19:20 | disposition home or self-care (01) ==
LOC: DL.ED 17:36
DX: R42 Dizziness and giddiness (principal); F41.9 Anxiety disorder, unspecified; I10 Essential (primary) hypertension; F32.9 Major depressive disorder, single episode, unspecified; F17.210 Nicotine dependence, cigarettes, uncomplicated; Z88.8 Allergy status to other drugs, medicaments and biological substances
CPT/HCPCS: 36415; 71045; 80053; 84484; 85025; 93005; 93010; 99284; A9270

== ENCOUNTER 2017-06-03 17:01 | Emergency (ER) | payer OTHER ==
[2017-06-03] MEDS ORDERED: Ondansetron 4 MG/2 ML SDV IV ONE (17:20)
[2017-06-03] MEDS ORDERED: Sodium Chloride 0.9% 1,000 ML IV ONE (17:20)
--- NOTE | 2017-06-03 17:26 | EDM.PDOC ---
ED HPI GENERAL MEDICAL PROBLEM - General Chief Complaint: General Stated Complaint: [id number] almost collapsed-sick since last thur,flu? Time Seen by Provider: 06/03/17 17:15 Source of Information: Reports: Patient History Limitations: Reports: No Limitations - History of Present Illness INITIAL COMMENTS - FREE TEXT/NARRATIVE: This 52 yo male patient reports to the ED with a productive cough, generalized body aches and a lack of energy since 05/29/17. The patient reports that he has been taking OTC medication for some temporary symptom relief. The patient reports he as also been having difficulties dealing with his mother's . 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 - Related Data Allergies Allergy/AdvReac Type Severity Reaction Status Date / Time bupropion HCl Allergy Agitation Verified 06/03/17 17:06 [From Wellbutrin] hydrochlorothiazide AdvReac Dizziness Verified 06/03/17 17:06 Home Meds: Home Meds ClonazePAM [KlonoPIN] 1 tab PO TID PRN 05/12/16 [History] Past Medical History HEENT History: Reports: Impaired Vision Cardiovascular History: Reports: Hypertension Respiratory History: Reports: None Gastrointestinal History: Reports: GERD, Helicobacter Pylori, Irritable Bowel Syndrome Genitourinary History: Reports: None Musculoskeletal History: Reports: Fracture, Other (See Below) Other Musculoskeletal History: SCIATICA, CARPEL TUNNEL, FX BILATERAL ANKLES (NO SURGERY) Neurological History: Reports: Concussion Psychiatric History: Reports: Anxiety, Depression, PTSD Endocrine/Metabolic History: Reports: Obesity/BMI 30+, Other (See Below) Other Endocrine/Metabolic History: METABOLIC SYNDROME Hematologic History: Reports: None Immunologic History: Reports: None Oncologic (Cancer) History: Reports: None Dermatologic History: Reports: None - Infectious Disease History Infectious Disease History: Reports: Chicken Pox, Measles, Mumps - Past Surgical History Head Surgeries/Procedures: Reports: None Social & Family History - Family History Family Medical History: Noncontributory Neurological: Reports: Alzheimers Disease Endocrine/Metabolic: Reports: Osteoporosis Oncologic: Reports: Breast - Tobacco Use Smoking Status *Q: Current Every Day Smoker Years of Tobacco use: 30 Packs/Tins Daily: 1 Used Tobacco, but Quit: No Second Hand Smoke Exposure: No - Caffeine Use Caffeine Use: Reports: None Other Caffeine Use: 5 coke a day - Alcohol Use Days Per Week of Alcohol Use: 1 Number of Drinks Per Day: 3 Total Drinks Per Week: 3 - Recreational Drug Use Recreational Drug Use: No Drug Use in Last 12 Months: No - Living Situation & Occupation Living situation: Reports: , with Family Occupation: Employed ED ROS GENERAL - Review of Systems Review Of Systems: ROS reveals no pertinent complaints other than HPI. ED EXAM, GENERAL - Physical Exam Exam: See Below Exam Limited By: No Limitations General Appearance: Alert, WD/WN, Moderate Distress Eye Exam: Bilateral Eye: EOMI, Normal Inspection, PERRL Ears: Normal External Exam, Normal Canal, Hearing Grossly Normal, Normal TMs Nose: Normal Inspection, Normal Mucosa, No Blood Throat/Mouth: Normal Inspection, Normal Lips, Normal Teeth, Normal Gums, Normal Oropharynx, Normal Voice, No Airway Compromise Head: Atraumatic, Normocephalic Neck: Normal Inspection, Supple, Non-Tender, Full Range of Motion Respiratory/Chest: No Respiratory Distress, Chest Non-Tender, Rhonchi (diffuse) Cardiovascular: Normal Peripheral Pulses, Regular Rate, Rhythm, No Edema, No Gallop, No JVD, No Murmur, No Rub GI/Abdominal: Normal Bowel Sounds, Soft, Non-Tender, No Organomegaly, No Distention, No Abnormal Bruit, No Mass (Male) Exam: Deferred Rectal (Males) Exam: Deferred Back Exam: Normal Inspection, Full Range of Motion, NT Extremities: Normal Inspection, Normal Range of Motion, Non-Tender, Normal Capillary Refill, No Pedal Edema Neurological: Alert, Oriented, CN II-XII Intact, Normal Cognition, Normal Gait, Normal Reflexes, No Motor/Sensory Deficits Psychiatric: Normal Affect, Normal Mood Skin Exam: Warm, Dry, Intact, Normal Color, No Rash Lymphatic: No Adenopathy Course - Vital Signs Last Recorded V/S: Last Vital Signs Temp 36.7 C 06/03/17 17:06 Pulse 98 06/03/17 17:06 Resp 18 06/03/17 17:06 BP 143/92 H 06/03/17 17:06 Pulse Ox 95 06/03/17 17:06 - Orders/Labs/Meds Orders: Active Orders 24 hr Category Date Time Status INFLUENZA A+B AG SCREEN [RM] Stat Lab 06/03/17 17:26 Ordered Sodium Chloride 0.9% [Normal Saline] 1,000 ml Med 06/03/17 17:20 Active IV .BOLUS Medication Orders Sodium Chloride (Normal Saline) 1,000 mls @ 999 mls/hr IV .BOLUS ONE Stop: 06/03/17 18:20 Last Admin: 06/03/17 17:27 Dose: 999 mls/hr Labs: Laboratory Tests 06/03/17 06/03/17 Range/Units 17:26 17:26 WBC 4.9 L (5.0-10.0) 10^3/uL RBC 4.79 (4.6-6.2) 10^6/uL Hgb 14.6 (14.0-18.0) g/dL Hct 42.0 (40.0-54.0) % MCV 87.7 (80-100) fL MCH 30.5 (27.0-34.0) pg MCHC 34.8 (33.0-35.0) g/dL Plt Count 146 L D (150-450) 10^3/uL Neut % (Auto) 57.9 (42.2-75.2) % Lymph % (Auto) 28.6 (20.5-50.1) % [place] % (Auto) 12.3 H (2-8) % Eos % (Auto) 0.8 L (1.0-3.0) % Baso % (Auto) 0.4 (0.0-1.0) % Sodium 130 L (135-145) mmol/L Potassium 3.8 (3.6-5.0) mmol/L Chloride 99 L (101-111) mmol/L Carbon Dioxide 23.0 (21.0-31.0) mmol/L Anion Gap 11.8 BUN 9 (7-18) mg/dL Creatinine 0.8 (0.6-1.3) mg/dL Est Cr Clr Drug Dosing 110.26 mL/min Estimated GFR (MDRD) > 60 BUN/Creatinine Ratio 11.25 Glucose 94 (74-105) mg/dL Calcium 7.9 L (8.4-10.2) mg/dl Total Bilirubin 0.9 (0.2-1.0) mg/dL AST 32 (10-42) IU/L ALT 29 (10-60) IU/L Alkaline Phosphatase 70 (42-121) IU/L Total Protein 7.2 (6.7-8.2) g/dl Albumin 4.0 (3.2-5.5) g/dl Globulin 3.2 Albumin/Globulin Ratio 1.25 Meds: Medications Generic Name Dose Route Start Last Admin Trade Name Freq PRN Reason Stop Dose Admin Sodium Chloride 1,000 mls @ 999 mls/hr 06/03/17 17:20 06/03/17 17:27 Normal Saline IV 06/03/17 18:20 999 mls/hr .BOLUS ONE Administration Discontinued Medications Generic Name Dose Route Start Last Admin Trade Name Freq PRN Reason Stop Dose Admin Ondansetron HCl 4 mg 06/03/17 17:20 06/03/17 17:29 Zofran IV 06/03/17 17:21 4 mg ONETIME ONE Administration Departure - Departure Time of Disposition: 17:59 Disposition: Home, Self-Care 01 Condition: Fair Clinical Impression: Influenza B - Discharge Information Instructions: Influenza, Adult, Fize-ox-Pani Referrals: Temitope Lentz LPN [Primary Care Provider] - Forms: ED Department Discharge Care Plan Goals: The patient was advised of the examination and lab results during the visit. The patient was given a liter of IV fluids and IV Zofran while in the ED. The patient was discharged with a script for Robitussin AC #100 mL to take 10 mL by mouth at bedtime for cough. The patient should stick to a BRAT diet (bananas, rice, applesauce and toast) with small frequent sips of water. If the patient has any additional symptoms or concerns, the patient should visit his primary care facility or return to the emergency department. - My Orders Last 24 Hours: My Active Orders 06/03/17 17:20 Sodium Chloride 0.9% [Normal Saline] 1,000 ml IV .BOLUS 06/03/17 17:26 INFLUENZA A+B AG SCREEN [RM] Stat - Assessment/Plan Last 24 Hours: My Active Orders 06/03/17 17:20 Sodium Chloride 0.9% [Normal Saline] 1,000 ml IV .BOLUS 06/03/17 17:26 INFLUENZA A+B AG SCREEN [RM] Stat
[2017-06-03 17:51] LABS: CHLORIDE,CL 99 mmol/L (101-111); SODIUM,NA 130 mmol/L (135-145)
[2017-06-03 18:16] VITALS: BP 137/95
== END 2017-06-03 18:09 | disposition home or self-care (01) ==
LOC: DL.ED 17:01
DX: J10.1 Influenza due to other identified influenza virus with other respiratory manifestations (principal); I10 Essential (primary) hypertension; F17.210 Nicotine dependence, cigarettes, uncomplicated; Z88.8 Allergy status to other drugs, medicaments and biological substances; Z79.899 Other long term (current) drug therapy
CPT/HCPCS: 36415; 71046; 80053; 85025; 87804; 96361; 96374; 99283; J2405; J7030

== ENCOUNTER 2017-07-02 14:29 | Emergency (ER) | payer OTHER ==
[2017-07-02 14:53] VITALS: BP 164/89
--- NOTE | 2017-07-02 15:15 | CR ---
CLINICAL HISTORY: 52-year-old male with chest pain. INTERPRETATION: No acute new cardiopulmonary abnormality and general appearance unchanged except for technique (AP versus PA) exam 03 June 2017. Normal cardiac silhouette without cephalization of vascular flow, alveolar edema or dependent effusio n. No known lung mass, hilar lymphadenopathy or focal lobar pneumonia. No atelectasis/collapse. No pneumothorax.
--- NOTE | 2017-07-02 15:20 | EDM.PDOC ---
ED HPI GENERAL MEDICAL PROBLEM - General Chief Complaint: Neuro Symptoms/Deficits Stated Complaint: [id number] NUMBNESS IN LT SIDE OF BODY Time Seen by Provider: 07/02/17 14:55 Source of Information: Reports: Patient, RN, RN Notes Reviewed History Limitations: Reports: Other (flighting thoughts) - History of Present Illness INITIAL COMMENTS - FREE TEXT/NARRATIVE: Pt presents to the ER with c/o numbness to the left arm and left leg. Patient states he was on his way to work today when his left arm became numb, and his left leg. He then states that the numbness has been present in the left arm for "weeks". When asked to confirm when the numbness began he became very anxious. Patient denies chest pains or SOB, denies fever, chills, vomiting or diarrhea. He states he is "nauseated all the time and that is why he drinks caffeine." Pt states he has a history of anxiety attacks. His depression medications have recently changed since his mother . Onset: Today, Sudden - Related Data Allergies Allergy/AdvReac Type Severity Reaction Status Date / Time bupropion HCl Allergy Agitation Verified 06/03/17 17:06 [From Wellbutrin] losartan Allergy Cannot Verified 07/02/17 14:59 Remember hydrochlorothiazide AdvReac Dizziness Verified 06/03/17 17:06 Home Meds: Home Meds ClonazePAM [KlonoPIN] 1 tab PO TID PRN 05/12/16 [History] Past Medical History HEENT History: Reports: Impaired Vision Cardiovascular History: Reports: Hypertension Respiratory History: Reports: None Gastrointestinal History: Reports: GERD, Helicobacter Pylori, Irritable Bowel Syndrome Genitourinary History: Reports: None Musculoskeletal History: Reports: Fracture, Other (See Below) Other Musculoskeletal History: SCIATICA, CARPEL TUNNEL, FX BILATERAL ANKLES (NO SURGERY) Neurological History: Reports: Concussion Psychiatric History: Reports: Anxiety, Depression, Panic Attack, PTSD Endocrine/Metabolic History: Reports: Obesity/BMI 30+, Other (See Below) Other Endocrine/Metabolic History: METABOLIC SYNDROME Hematologic History: Reports: None Immunologic History: Reports: None Oncologic (Cancer) History: Reports: None Dermatologic History: Reports: None - Infectious Disease History Infectious Disease History: Reports: Chicken Pox, Measles, Mumps - Past Surgical History Head Surgeries/Procedures: Reports: None HEENT Surgical History: Reports: Tonsillectomy Social & Family History - Family History Family Medical History: Noncontributory Neurological: Reports: Alzheimers Disease Endocrine/Metabolic: Reports: Osteoporosis Oncologic: Reports: Breast - Tobacco Use Smoking Status *Q: Current Every Day Smoker Years of Tobacco use: 20 Packs/Tins Daily: 0.5 - Caffeine Use Caffeine Use: Reports: None Other Caffeine Use: 5 coke a day - Recreational Drug Use Recreational Drug Use: No - Living Situation & Occupation Living situation: Reports: , with Family Occupation: Employed ED ROS GENERAL - Review of Systems Review Of Systems: ROS reveals no pertinent complaints other than HPI. ED EXAM, NEURO - Physical Exam Exam: See Below Exam Limited By: Other (flighting thoughts) General Appearance: Alert, Anxious, Moderate Distress Eye Exam: Bilateral Eye: EOMI, Normal Inspection Ears: Normal External Exam, Hearing Grossly Normal Nose: Normal Inspection Throat/Mouth: Normal Inspection, Normal Voice, No Airway Compromise Head Exam: Atraumatic, Normocephalic Neck: Normal Inspection, Full Range of Motion Respiratory/Chest: No Respiratory Distress, Crackles (throughout) Cardiovascular: Normal Peripheral Pulses, Regular Rate, Rhythm, No Edema, No Gallop, No JVD, No Murmur, No Rub GI/Abdominal: Normal Bowel Sounds, Soft, Non-Tender (Male) Exam: Deferred Rectal (Males) Exam: Deferred Neurological: Alert, Normal Gait, No Motor/Sensory Deficits, Oriented x 3 Back Exam: Normal Inspection, Full Range of Motion Extremities: Normal Inspection, Normal Range of Motion, Non-Tender, No Pedal Edema, Normal Capillary Refill Psychiatric: Anxious, Tearful Skin Exam: Warm, Dry, Intact, Normal Color, No Rash EKG INTERPRETATION EKG Date: 07/02/17 Time: 15:12 Rhythm: Other (sinus bradycardia) Rate (Beats/Min): 59 [place]: Normal P-Wave: Present QRS: Normal ST-T: Normal QT: Normal Comparison: Change From Previous EKG Course - Vital Signs Last Recorded V/S: Last Vital Signs Temp 97.8 F 07/02/17 14:51 Pulse 66 07/02/17 14:51 Resp 16 07/02/17 14:51 BP 164/89 H 07/02/17 14:51 Pulse Ox 98 07/02/17 14:51 - Orders/Labs/Meds Orders: Active Orders 24 hr Category Date Time Status EKG Documentation Completion [RC] STAT Care 07/02/17 15:00 Active DRUG SCREEN URINE BIORAD [URCHEM] Stat Lab 07/02/17 15:38 Ordered UA W/MICROSCOPIC [URIN] Stat Lab 07/02/17 15:38 Ordered Labs: Laboratory Tests 07/02/17 07/02/17 07/02/17 Range/Units 15:22 15:22 15:22 WBC 8.0 (5.0-10.0) 10^3/uL RBC 4.45 L (4.6-6.2) 10^6/uL Hgb 13.9 L (14.0-18.0) g/dL Hct 39.1 L (40.0-54.0) % MCV 87.9 (80-100) fL MCH 31.2 (27.0-34.0) pg MCHC 35.5 H (33.0-35.0) g/dL Plt Count 205 (150-450) 10^3/uL Neut % (Auto) 62.9 (42.2-75.2) % Lymph % (Auto) 23.4 (20.5-50.1) % [place] % (Auto) 10.7 H (2-8) % Eos % (Auto) 2.6 (1.0-3.0) % Baso % (Auto) 0.4 (0.0-1.0) % Sodium 130 L (135-145) mmol/L Potassium 4.0 (3.6-5.0) mmol/L Chloride 99 L (101-111) mmol/L Carbon Dioxide 25.0 (21.0-31.0) mmol/L Anion Gap 10.0 BUN 9 (7-18) mg/dL Creatinine 0.7 (0.6-1.3) mg/dL Est Cr Clr Drug Dosing 126.01 mL/min Estimated GFR (MDRD) > 60 BUN/Creatinine Ratio 12.85 Glucose 91 (74-105) mg/dL Calcium 8.6 (8.4-10.2) mg/dl Total Bilirubin 0.6 (0.2-1.0) mg/dL AST 21 (10-42) IU/L ALT 22 (10-60) IU/L Alkaline Phosphatase 66 (42-121) IU/L Troponin I < 0.02 (0.00-0.02) ng/ml Total Protein 7.1 (6.7-8.2) g/dl Albumin 4.0 (3.2-5.5) g/dl Globulin 3.1 Albumin/Globulin Ratio 1.29 TSH, Ultra Sensitive 1.84 (0.45-5.33) uIu/mL Urine Color (YELLOW) Urine Appearance (CLEAR) Urine pH (5.0-9.0) Ur Specific [place] (1.005-1.030) Urine Protein (NEGATIVE) Urine Glucose (UA) (NEGATIVE) Urine Ketones (NEGATIVE) Urine Occult Blood (NEGATIVE) Urine Nitrite (NEGATIVE) Urine Bilirubin (NEGATIVE) Urine Urobilinogen (0.2-1.0) mg/dL Ur Leukocyte Esterase (NEGATIVE) Urine RBC /HPF Urine WBC (0-5/HPF) /HPF Ur Epithelial Cells /HPF Urine Bacteria (0-FEW/HPF) /HPF Urine Mucus /LPF Urine Opiates Screen (NEGATIVE) Ur Oxycodone Screen (NEGATIVE) Urine Methadone Screen (NEGATIVE) Ur Barbiturates Screen (NEGATIVE) U Tricyclic Antidepress (NEGATIVE) Ur Phencyclidine Scrn (NEGATIVE) Ur Amphetamine Screen (NEGATIVE) U Methamphetamines Scrn (NEGATIVE) Urine MDMA Screen (NEGATIVE) U Benzodiazepines Scrn (NEGATIVE) Urine Cocaine Screen (NEGATIVE) U Marijuana (THC) Screen (NEGATIVE) Ethyl Alcohol < 5 mg/dL 07/02/17 07/02/17 Range/Units 15:38 15:38 WBC (5.0-10.0) 10^3/uL RBC (4.6-6.2) 10^6/uL Hgb (14.0-18.0) g/dL Hct (40.0-54.0) % MCV (80-100) fL MCH (27.0-34.0) pg MCHC (33.0-35.0) g/dL Plt Count (150-450) 10^3/uL Neut % (Auto) (42.2-75.2) % Lymph % (Auto) (20.5-50.1) % [place] % (Auto) (2-8) % Eos % (Auto) (1.0-3.0) % Baso % (Auto) (0.0-1.0) % Sodium (135-145) mmol/L Potassium (3.6-5.0) mmol/L Chloride (101-111) mmol/L Carbon Dioxide (21.0-31.0) mmol/L Anion Gap BUN (7-18) mg/dL Creatinine (0.6-1.3) mg/dL Est Cr Clr Drug Dosing mL/min Estimated GFR (MDRD) BUN/Creatinine Ratio Glucose (74-105) mg/dL Calcium (8.4-10.2) mg/dl Total Bilirubin (0.2-1.0) mg/dL AST (10-42) IU/L ALT (10-60) IU/L Alkaline Phosphatase (42-121) IU/L Troponin I (0.00-0.02) ng/ml Total Protein (6.7-8.2) g/dl Albumin (3.2-5.5) g/dl Globulin Albumin/Globulin Ratio TSH, Ultra Sensitive (0.45-5.33) uIu/mL Urine Color Light yellow (YELLOW) Urine Appearance Slightly cloudy (CLEAR) Urine pH 7.0 (5.0-9.0) Ur Specific [place] 1.010 (1.005-1.030) Urine Protein Negative (NEGATIVE) Urine Glucose (UA) Negative (NEGATIVE) Urine Ketones Negative (NEGATIVE) Urine Occult Blood Moderate H (NEGATIVE) Urine Nitrite Negative (NEGATIVE) Urine Bilirubin Negative (NEGATIVE) Urine Urobilinogen 0.2 (0.2-1.0) mg/dL Ur Leukocyte Esterase Negative (NEGATIVE) Urine RBC 10-20 H /HPF Urine WBC 0-5 (0-5/HPF) /HPF Ur Epithelial Cells Rare /HPF Urine Bacteria Rare (0-FEW/HPF) /HPF Urine Mucus Rare /LPF Urine Opiates Screen Negative (NEGATIVE) Ur Oxycodone Screen Negative (NEGATIVE) Urine Methadone Screen Negative (NEGATIVE) Ur Barbiturates Screen Negative (NEGATIVE) U Tricyclic Antidepress Negative (NEGATIVE) Ur Phencyclidine Scrn Negative (NEGATIVE) Ur Amphetamine Screen Negative (NEGATIVE) U Methamphetamines Scrn Negative (NEGATIVE) Urine MDMA Screen Negative (NEGATIVE) U Benzodiazepines Scrn Negative (NEGATIVE) Urine Cocaine Screen Negative (NEGATIVE) U Marijuana (THC) Screen Negative (NEGATIVE) Ethyl Alcohol mg/dL Meds: Medications Discontinued Medications Generic Name Dose Route Start Last Admin Trade Name Freq PRN Reason Stop Dose Admin Lorazepam 2 mg 07/02/17 15:35 Ativan IVPUSH 07/02/17 15:36 ONETIME ONE Lorazepam 1 mg 07/02/17 15:57 07/02/17 16:02 Ativan PO 07/02/17 15:58 1 mg ONETIME ONE Administration - Radiology Interpretation Free Text/Narrative:: Chest x-ray: No acute new cardiopulmonary abnormality and general appearance unchanged from 06/03/17. See rad report. Head CT: Tiny ischemic infarct basal ganglia, on the right (age uncertain). No intracranial mass, hydrocephalus or signs of acute intracranial bleed. See rad report. See rad report. Departure - Departure Time of Disposition: 16:46 Disposition: Home, Self-Care 01 Condition: Fair Clinical Impression: Hyponatremia, Excessive thirst, Nonspecific chest pain, Anxiety - Discharge Information Instructions: Exercise Stress Test, [id number], Chest Wall Pain, [id number] , Nonspecific Chest Pain, [id number] Referrals: PCP,None [Primary Care Provider] - Forms: ED Department Discharge Additional Instructions: Follow up with your primary care facility to have a Stress Test scheduled Recommend Brain MRI, have [facility] order - My Orders Last 24 Hours: My Active Orders 07/02/17 15:00 EKG Documentation Completion [RC] STAT 07/02/17 15:38 DRUG SCREEN URINE BIORAD [URCHEM] Stat UA W/MICROSCOPIC [URIN] Stat - Assessment/Plan Last 24 Hours: My Active Orders 07/02/17 15:00 EKG Documentation Completion [RC] STAT 07/02/17 15:38 DRUG SCREEN URINE BIORAD [URCHEM] Stat UA W/MICROSCOPIC [URIN] Stat
--- NOTE | 2017-07-02 15:20 | CT ---
Clinical history: 52-year-old male with numbness left arm and leg. No previous CT exam or MRI of the head/brain immediately available at this institution for comparison. TECHNIQUE: Volume acquisition of data emergency unenhanced CT scan of the head and brain obtained whi le patient was lying supine on the Siemens multi slice CT scanner [place], [place]. All data archived in the PACS system for storage and study (bone/brain windows). Interpretation: Physiologic midline pineal; symmetric choroid plexus; and anterior midline falx calci fications. Mild atrophy pattern particularly involving the frontal lobes symmetric with underlying mi rror-image normal ventricular system. No hydrocephalus. *Isolated tiny lacunar type infarct involving the head of the caudate nucleus, on the right. No supratentorial or posterior fossa mass lesion. Cerebellum and brainstem unremarkable. No other focal areas of ischemic infarct and no signs of acute intracerebral/ventricular/subarachnoid bleed. Normal bony calvarium without sign of fracture, underlying brain contusion or epidural/subdural hemat kathie. Symmetric clear pneumatization of the mastoid and paranasal sinuses. CONCLUSION: Tiny ischemic infarct basal ganglia, on the right (age uncertain). No intracranial mass, hydrocephalus or signs of acute intracranial bleed.
[2017-07-02] MEDS ORDERED: LORazepam 2 MG/ML Syringe IVPUSH ONE (15:35)
[2017-07-02 15:49] LABS: CHLORIDE,CL 99 mmol/L (101-111); SODIUM,NA 130 mmol/L (135-145)
[2017-07-02] MEDS ORDERED: LORazepam 1 MG Tab PO ONE (15:57)
== END 2017-07-02 17:00 | disposition home or self-care (01) ==
LOC: DL.ED 14:29
DX: R07.89 Other chest pain (principal); F41.9 Anxiety disorder, unspecified; E87.1 Hypo-osmolality and hyponatremia; R63.1 Polydipsia; K21.9 Gastro-esophageal reflux disease without esophagitis; I10 Essential (primary) hypertension; E66.9 Obesity, unspecified; F32.9 Major depressive disorder, single episode, unspecified; F17.210 Nicotine dependence, cigarettes, uncomplicated; Z88.8 Allergy status to other drugs, medicaments and biological substances; Z68.32 Body mass index [BMI] 32.0-32.9, adult
CPT/HCPCS: 36415; 70450; 71045; 80053; 80305; 81001; 84443; 84484; 85025; 93005; 99285; A9270-GY; G0480

== ENCOUNTER 2019-03-31 16:57 | Emergency (ER) | payer OTHER ==
[2019-03-31] MEDS ORDERED: Aspirin 81 MG Tab.Chew PO ONE (17:12)
[2019-03-31] MEDS ORDERED: Sodium Chloride 0.9% 10 ML Syringe FLUSH PRN (17:12)
[2019-03-31 17:38] LABS: ANION GAP 10.8; CHLORIDE,CL 102 mmol/L (101-111); SODIUM,NA 134 mmol/L (135-145)
--- NOTE | 2019-03-31 17:40 | EDM.PDOC ---
ED HPI GENERAL MEDICAL PROBLEM - General Chief Complaint: Chest Pain Stated Complaint: CHEST PAIN Time Seen by Provider: 03/31/19 17:20 Source of Information: Reports: Patient - History of Present Illness INITIAL COMMENTS - FREE TEXT/NARRATIVE: Ricardo presents to the ED with concerns of right sided chest pain that started earlier today. Around 2pm today, he was stretching prior to going to work. He was stretching his arms over his head and felt a pulling and pain to the right side of his chest shortly after. He describes the pain as sharp, constant, and nonradiating. Along with the pain, he has had some nausea but no vomiting. He denies dizziness, lightheaded, sweating, abdominal pain. Movement, pushing on his chest wall, and deep breathing make the pain worse. He went to work and a co -worker told him it is best to have chest pain evaluated in case it is a heart attack. Since hearing that, he grew very nervous and anxious and decided to come to the ED for evaluation. He denies any falls or direct injuries to his chest wall. There are no overlying skin changes to the region. He has not been sick or injured recently. He has no history of CAD or MD. He has no history of blood clots or bleeding disorders. He has not been immobilized recently. He does smoke about 1/2ppd. He denies illegal drug use or regular alcohol use. Onset: Today Onset Time: 14:00 Quality: Reports: Sharp Severity: Moderate Improves with: Reports: Rest Worsens with: Reports: Breathing, Movement Right Chest Pain Score (Numeric/FACES): 6 - Related Data Allergies Allergy/AdvReac Type Severity Reaction Status Date / Time bupropion HCl Allergy Agitation Verified 03/31/19 17:11 [From Wellbutrin] hydrochlorothiazide AdvReac Dizziness Verified 03/31/19 17:11 Home Meds: Home Meds ClonazePAM [KlonoPIN] 0.25 mg PO DAILY PRN 05/12/16 [History] Ibuprofen 600 mg PO BID PRN 07/11/17 [History] Losartan [Cozaar] 75 mg PO DAILY 07/15/17 [History] Nefazodone [Serzone] 100 mg PO DAILY 08/27/18 [History] Past Medical History HEENT History: Reports: Impaired Vision Cardiovascular History: Reports: Hypertension Respiratory History: Reports: None Gastrointestinal History: Reports: GERD, Helicobacter Pylori, Irritable Bowel Syndrome, Other (See Below) Genitourinary History: Reports: None Musculoskeletal History: Reports: Back Pain, Chronic, Fracture, Other (See Below ) Other Musculoskeletal History: SCIATICA, CARPEL TUNNEL, FX BILATERAL ANKLES (NO SURGERY) Neurological History: Reports: Concussion Psychiatric History: Reports: Anxiety, Depression, Panic Attack, PTSD Endocrine/Metabolic History: Reports: Obesity/BMI 30+, Other (See Below) Other Endocrine/Metabolic History: METABOLIC SYNDROME Hematologic History: Reports: Other (See Below) Immunologic History: Reports: None Oncologic (Cancer) History: Reports: None Dermatologic History: Reports: None - Infectious Disease History Infectious Disease History: Reports: Chicken Pox, Measles, Mumps - Past Surgical History Head Surgeries/Procedures: Reports: None HEENT Surgical History: Reports: Tonsillectomy GI Surgical History: Reports: Colonoscopy, Polypectomy Social & Family History - Family History Family Medical History: Noncontributory Neurological: Reports: Alzheimers Disease Endocrine/Metabolic: Reports: Osteoporosis Oncologic: Reports: Breast - Tobacco Use Smoking Status *Q: Current Every Day Smoker Years of Tobacco use: 30 Packs/Tins Daily: 1 - Caffeine Use Caffeine Use: Reports: None Other Caffeine Use: 5 coke a day - Recreational Drug Use Recreational Drug Use: No - Living Situation & Occupation Living situation: Reports: Single (Was x 2 years. 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[employer].) ED ROS GENERAL - Review of Systems Review Of Systems: See Below (and see HPI for further details.) Constitutional: Reports: No Symptoms HEENT: Reports: No Symptoms Respiratory: Reports: No Symptoms Cardiovascular: Reports: Chest Pain GI/Abdominal: Reports: Nausea : Reports: No Symptoms Neurological: Reports: No Symptoms Psychiatric: Reports: Anxiety Hematologic/Lymphatic: Reports: No Symptoms ED EXAM, GENERAL - Physical Exam Exam: See Below Exam Limited By: No Limitations General Appearance: Alert, WD/WN, No Apparent Distress Nose: Normal Mucosa, No Blood Head: Atraumatic, Normocephalic Neck: Normal Inspection, Supple, Non-Tender Respiratory/Chest: No Respiratory Distress, Lungs Clear, Normal Breath Sounds, No Accessory Muscle Use, Other (right sided chest wall pain with palpation) Cardiovascular: Normal Peripheral Pulses, Regular Rate, Rhythm, No Edema, No Murmur GI/Abdominal: Normal Bowel Sounds, Soft, Non-Tender, No Organomegaly, No Distention Extremities: Normal Inspection, Non-Tender, No Pedal Edema, Normal Capillary Refill Psychiatric: Normal Affect Skin Exam: Warm, Dry, Normal Color EKG INTERPRETATION EKG Date: 03/31/19 Rhythm: NSR [place]: Normal P-Wave: Present QRS: Normal ST-T: Normal QT: Normal Comparison: No Change EKG Interpretation Comments: unchanged from previous Course - Vital Signs Last Recorded V/S: Last Vital Signs Temp 97.8 F 03/31/19 18:00 Pulse 67 03/31/19 21:11 Resp 20 03/31/19 18:00 BP 144/84 H 03/31/19 21:11 Pulse Ox 96 03/31/19 21:11 - Orders/Labs/Meds Orders: Active Orders 24 hr Category Date Time Status EKG 12 Lead [EKG Documentation Completion] [RC] ROUTINE Care 03/31/19 21:02 Active EKG 12 Lead [EKG Documentation Completion] [RC] STAT Care 03/31/19 17:09 Active Peripheral IV Care [RC] . DIRECTED Care 03/31/19 17:13 Active Chest 1V Frontal [CR] Stat Exams 03/31/19 17:13 Taken Chest 1V Frontal [CR] Urgent Exams 03/31/19 18:03 Taken Sodium Chloride 0.9% [Saline Flush] Med 03/31/19 17:12 Active 10 ml FLUSH ASDIRECTED PRN Peripheral IV Insertion Adult [OM.PC] Stat Oth 03/31/19 17:13 Ordered Medication Orders Sodium Chloride (Saline Flush) 10 ml FLUSH ASDIRECTED PRN PRN Reason: Keep Vein Open Last Admin: 03/31/19 17:23 Dose: 10 ml Labs: Laboratory Tests 03/31/19 03/31/19 03/31/19 Range/Units 17:09 17:09 17:09 WBC 7.8 (5.0-10.0) 10^3/uL RBC 4.73 (4.6-6.2) 10^6/uL Hgb 14.8 (14.0-18.0) g/dL Hct 42.1 (40.0-54.0) % MCV 89.0 (80-100) fL MCH 31.3 (27.0-34.0) pg MCHC 35.2 H (33.0-35.0) g/dL Plt Count 245 (150-450) 10^3/uL Neut % (Auto) 63.4 (42.2-75.2) % Lymph % (Auto) 25.1 (20.5-50.1) % [place] % (Auto) 8.7 H (2-8) % Eos % (Auto) 2.4 (1.0-3.0) % Baso % (Auto) 0.4 (0.0-1.0) % D-Dimer, Quantitative 114 (0-400) ng/mL Sodium 134 L (135-145) mmol/L Potassium 3.8 (3.6-5.0) mmol/L Chloride 102 (101-111) mmol/L Carbon Dioxide 25.0 (21.0-31.0) mmol/L Anion Gap 10.8 BUN 9 (7-18) mg/dL Creatinine 0.8 (0.6-1.3) mg/dL Est Cr Clr Drug Dosing 107.73 mL/min Estimated GFR (MDRD) > 60 BUN/Creatinine Ratio 11.25 Glucose 113 H (74-105) mg/dL Calcium 9.0 (8.4-10.2) mg/dl Total Bilirubin 0.7 (0.2-1.0) mg/dL AST 20 (10-42) IU/L ALT 20 (10-60) IU/L Alkaline Phosphatase 67 (42-121) IU/L Troponin I 0.03 H* (0.00-0.02) ng/ml Total Protein 7.4 (6.7-8.2) g/dl Albumin 4.4 (3.2-5.5) g/dl Globulin 3.0 Albumin/Globulin Ratio 1.47 03/31/19 Range/Units 21:00 WBC (5.0-10.0) 10^3/uL RBC (4.6-6.2) 10^6/uL Hgb (14.0-18.0) g/dL Hct (40.0-54.0) % MCV (80-100) fL MCH (27.0-34.0) pg MCHC (33.0-35.0) g/dL Plt Count (150-450) 10^3/uL Neut % (Auto) (42.2-75.2) % Lymph % (Auto) (20.5-50.1) % [place] % (Auto) (2-8) % Eos % (Auto) (1.0-3.0) % Baso % (Auto) (0.0-1.0) % D-Dimer, Quantitative (0-400) ng/mL Sodium (135-145) mmol/L Potassium (3.6-5.0) mmol/L Chloride (101-111) mmol/L Carbon Dioxide (21.0-31.0) mmol/L Anion Gap BUN (7-18) mg/dL Creatinine (0.6-1.3) mg/dL Est Cr Clr Drug Dosing mL/min Estimated GFR (MDRD) BUN/Creatinine Ratio Glucose (74-105) mg/dL Calcium (8.4-10.2) mg/dl Total Bilirubin (0.2-1.0) mg/dL AST (10-42) IU/L ALT (10-60) IU/L Alkaline Phosphatase (42-121) IU/L Troponin I 0.04 H* (0.00-0.02) ng/ml Total Protein (6.7-8.2) g/dl Albumin (3.2-5.5) g/dl Globulin Albumin/Globulin Ratio Meds: Medications Generic Name Dose Route Start Last Admin Trade Name Freq PRN Reason Stop Dose Admin Sodium Chloride 10 ml 03/31/19 17:12 03/31/19 17:23 Saline Flush FLUSH 10 ml ASDIRECTED PRN Administration Keep Vein Open Discontinued Medications Generic Name Dose Route Start Last Admin Trade Name Freq PRN Reason Stop Dose Admin Aspirin 324 mg 03/31/19 17:12 03/31/19 17:22 Aspirin PO 03/31/19 17:13 324 mg ONETIME ONE Administration - Radiology Interpretation Free Text/Narrative:: chest xray: no acute process, no cardiomegaly. see radiology report. - Re-Assessments/Exams Free Text/Narrative Re-Assessment/Exam: Repeat EKG and troponin are unchanged. Discussed results with the patient. 03/31/19 21:54 Departure - Departure Time of Disposition: 21:54 Disposition: Home, Self-Care 01 Condition: Good Clinical Impression: Non-cardiac chest pain Instructions: Nonspecific Chest Pain, [id number] Forms: ED Department Discharge Care Plan Goals: We reviewed repeat EKG and troponin repeat results. He was pleased with the results. We discussed other causes of his chest pain, which is most likely MSK in nature given it is reproduced on palpation. He can use tylenol or ibuprofen for the pain. We discussed signs and symptoms that would prompt immediate medical evaluation. He was advised to return to the ED if symptoms worsen or return. He can also follow up with primary care provider. Encouraged smoking cessation. Sepsis Event Note - Evaluation Sepsis Screening Result: No Definite Risk - Focused Exam Vital Signs: Vital Signs Temp Pulse Resp BP Pulse Ox 03/31/19 21:11 67 144/84 H 96 03/31/19 20:45 70 126/83 95 03/31/19 20:10 71 143/92 H 97 03/31/19 18:00 97.8 F 68 20 157/93 H 99 03/31/19 17:12 97.5 F 74 16 167/96 H 97 Date Exam was Performed: 03/31/19 Time Exam was Performed: 21:53 - Problem List & Annotations (1) Chest pain in adult SNOMED Code(s): 19969326 Code(s): R07.9 - CHEST PAIN, UNSPECIFIED Status: Acute Onset Date: ~03/31 - My Orders Last 24 Hours: My Active Orders 03/31/19 21:02 EKG 12 Lead [EKG Documentation Completion] [RC] ROUTINE - Assessment/Plan Last 24 Hours: My Active Orders 03/31/19 21:02 EKG 12 Lead [EKG Documentation Completion] [RC] ROUTINE
[2019-03-31 21:12] VITALS: BP 144/84
[2019-03-31 21:55] VITALS: PULSE 62
== END 2019-03-31 22:20 | disposition home or self-care (01) ==
LOC: DL.ED 16:57
DX: R07.89 Other chest pain (principal); F17.210 Nicotine dependence, cigarettes, uncomplicated; F41.9 Anxiety disorder, unspecified; F32.9 Major depressive disorder, single episode, unspecified
CPT/HCPCS: 36415; 71045; 80053; 84484; 85025; 85379; 93005; 99285; A9270

== ENCOUNTER 2019-04-02 13:07 | Emergency (ER) | payer OTHER ==
[2019-04-02] MEDS ORDERED: Sodium Chloride 0.9% 10 ML Syringe FLUSH PRN (13:39)
[2019-04-02 14:01] VITALS: BP 107/66; PULSE 84
--- NOTE | 2019-04-02 14:09 | EDM.PDOC ---
<Santos Taveras - Last Filed: 04/02/19 15:12> ED HPI GENERAL MEDICAL PROBLEM - General Chief Complaint: Gastrointestinal Problem Stated Complaint: NAUSEA,VOMITING Time Seen by Provider: 04/02/19 14:03 Source of Information: Reports: Patient, RN, RN Notes Reviewed History Limitations: Reports: No Limitations - History of Present Illness INITIAL COMMENTS - FREE TEXT/NARRATIVE: Ricardo comes into the ER with complaints nausea, vomiting, and diarrhea that started this am at 0800. Was to the ER a few days ago with chest pain, denies any chest pain today. Does have abdominal tenderness with palpation to the LLQ. He can't keep any food or drink down. Patient has had no changes to his usual diet, denies eating contaminated meat. 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 Denies having any symptoms prior to this morning. Onset: Today Duration: Constant Location: Reports: Abdomen Quality: Reports: Ache Severity: Moderate Improves with: Reports: None Worsens with: Reports: None Associated Symptoms: Reports: Diaphoresis, Loss of Appetite, Nausea/Vomiting, Weakness. Denies: Chest Pain, Cough, Fever/Chills, Headaches, Shortness of Breath, Syncope - Related Data Allergies Allergy/AdvReac Type Severity Reaction Status Date / Time bupropion HCl Allergy Agitation Verified 03/31/19 17:11 [From Wellbutrin] hydrochlorothiazide AdvReac Dizziness Verified 03/31/19 17:11 Home Meds: Home Meds ClonazePAM [KlonoPIN] 0.25 mg PO DAILY PRN 05/12/16 [History] Ibuprofen 600 mg PO BID PRN 07/11/17 [History] Losartan [Cozaar] 75 mg PO DAILY 07/15/17 [History] Nefazodone [Serzone] 100 mg PO DAILY 08/27/18 [History] Past Medical History HEENT History: Reports: Impaired Vision Cardiovascular History: Reports: Hypertension Respiratory History: Reports: None Gastrointestinal History: Reports: GERD, Helicobacter Pylori, Irritable Bowel Syndrome, Other (See Below) Genitourinary History: Reports: None Musculoskeletal History: Reports: Back Pain, Chronic, Fracture, Other (See Below ) Other Musculoskeletal History: SCIATICA, CARPEL TUNNEL, FX BILATERAL ANKLES (NO SURGERY) Neurological History: Reports: Concussion Psychiatric History: Reports: Anxiety, Depression, Panic Attack, PTSD Endocrine/Metabolic History: Reports: Obesity/BMI 30+, Other (See Below) Other Endocrine/Metabolic History: METABOLIC SYNDROME Hematologic History: Reports: Other (See Below) Immunologic History: Reports: None Oncologic (Cancer) History: Reports: None Dermatologic History: Reports: None - Infectious Disease History Infectious Disease History: Reports: Chicken Pox, Measles, Mumps - Past Surgical History Head Surgeries/Procedures: Reports: None HEENT Surgical History: Reports: Tonsillectomy GI Surgical History: Reports: Colonoscopy, Polypectomy Social & Family History - Family History Family Medical History: Noncontributory Neurological: Reports: Alzheimers Disease Endocrine/Metabolic: Reports: Osteoporosis Oncologic: Reports: Breast - Tobacco Use Smoking Status *Q: Current Every Day Smoker Years of Tobacco use: 40 Packs/Tins Daily: 0.5 Used Tobacco, but Quit: No - Caffeine Use Caffeine Use: Reports: None Other Caffeine Use: 5 coke a day - Recreational Drug Use Recreational Drug Use: No - Living Situation & Occupation Living situation: Reports: Single (Was x 2 years. No children.), with Family Occupation: Employed (Works in [employer] dept at [employer]) ED ROS GENERAL - Review of Systems Review Of Systems: See Below Constitutional: Reports: Weakness, Fatigue, Diaphoresis, Decreased Appetite. Denies: Fever, Chills HEENT: Reports: No Symptoms Respiratory: Reports: No Symptoms Cardiovascular: Reports: No Symptoms Endocrine: Reports: No Symptoms GI/Abdominal: Reports: Abdominal Pain (LLQ), Diarrhea, Decreased Appetite, Nausea, Vomiting. Denies: Constipation, Difficulty Swallowing : Reports: No Symptoms Musculoskeletal: Reports: No Symptoms Skin: Reports: No Symptoms Neurological: Reports: Weakness. Denies: Confusion, Dizziness, Headache, Numbness, Syncope Psychiatric: Reports: No Symptoms Hematologic/Lymphatic: Reports: No Symptoms Immunologic: Reports: No Symptoms ED EXAM, GI/ABD - Physical Exam Exam: See Below Exam Limited By: No Limitations General Appearance: Alert, Anxious, Mild Distress Head: Atraumatic, Normocephalic Neck: Normal Inspection, Supple, Non-Tender, Full Range of Motion Respiratory/Chest: No Respiratory Distress, Lungs Clear, Normal Breath Sounds, No Accessory Muscle Use, Chest Non-Tender Cardiovascular: Normal Peripheral Pulses, Regular Rate, Rhythm, No Edema, No Gallop, No JVD, No Murmur, No Rub GI/Abdominal Exam: Soft, No Organomegaly, Tender (LLQ), Abnormal Bowel Sounds ( hyperactive bowel sounds). No: Distended, Guarding, Rebound (Male) Exam: Deferred Rectal (Males) Exam: Deferred Neurological: Alert, Oriented, CN II-XII Intact, Normal Cognition, Normal Gait, Normal Reflexes, No Motor/Sensory Deficits Psychiatric: Normal Affect, Normal Mood Course - Vital Signs Last Recorded V/S: Last Vital Signs Temp 98.1 F 04/02/19 13:20 Pulse 84 04/02/19 13:20 Resp 18 04/02/19 13:20 BP 107/66 04/02/19 13:20 Pulse Ox 99 04/02/19 13:20 - Orders/Labs/Meds Orders: Active Orders 24 hr Category Date Time Status Peripheral IV Care [RC] . DIRECTED Care 04/02/19 13:39 Active Peripheral IV Insertion Adult [OM.PC] Stat Oth 04/02/19 13:39 Ordered Labs: Laboratory Tests 04/02/19 04/02/19 Range/Units 14:02 14:02 WBC 13.5 H (5.0-10.0) 10^3/uL RBC 4.85 (4.6-6.2) 10^6/uL Hgb 15.2 (14.0-18.0) g/dL Hct 43.0 (40.0-54.0) % MCV 88.7 (80-100) fL MCH 31.3 (27.0-34.0) pg MCHC 35.3 H (33.0-35.0) g/dL Plt Count 216 (150-450) 10^3/uL Neut % (Auto) 90.3 H (42.2-75.2) % Lymph % (Auto) 2.7 L (20.5-50.1) % [place] % (Auto) 6.5 (2-8) % Eos % (Auto) 0.4 L (1.0-3.0) % Baso % (Auto) 0.1 (0.0-1.0) % Sodium 134 L (135-145) mmol/L Potassium 4.7 (3.6-5.0) mmol/L Chloride 104 (101-111) mmol/L Carbon Dioxide 23.0 (21.0-31.0) mmol/L Anion Gap 11.7 BUN 14 (7-18) mg/dL Creatinine 1.1 (0.6-1.3) mg/dL Est Cr Clr Drug Dosing 75.88 mL/min Estimated GFR (MDRD) > 60 BUN/Creatinine Ratio 12.72 Glucose 116 H (74-105) mg/dL Calcium 8.6 (8.4-10.2) mg/dl Total Bilirubin 0.8 (0.2-1.0) mg/dL AST 18 (10-42) IU/L ALT 19 (10-60) IU/L Alkaline Phosphatase 69 (42-121) IU/L Troponin I < 0.02 (0.00-0.02) ng/ml Total Protein 7.1 (6.7-8.2) g/dl Albumin 4.1 (3.2-5.5) g/dl Globulin 3.0 Albumin/Globulin Ratio 1.37 Meds: Medications Discontinued Medications Generic Name Dose Route Start Last Admin Trade Name Freq PRN Reason Stop Dose Admin Ondansetron HCl 4 mg 04/02/19 14:49 04/02/19 15:02 Zofran IVPUSH 04/02/19 14:50 4 mg ONETIME ONE Administration Sodium Chloride 10 ml 04/02/19 13:39 04/02/19 15:02 Saline Flush FLUSH 10 ml ASDIRECTED PRN Administration Keep Vein Open Departure - Departure Time of Disposition: 15:30 Disposition: Home, Self-Care 01 Condition: Fair Clinical Impression: Viral gastroenteritis - Discharge Information *PRESCRIPTION DRUG MONITORING PROGRAM REVIEWED*: Not Applicable *COPY OF PRESCRIPTION DRUG MONITORING REPORT IN PATIENT WON: Not Applicable Instructions: Viral Gastroenteritis, Adult, Food Choices to Help Relieve Diarrhea, Adult, Diarrhea, Adult, [id number] Forms: ED Department Discharge Additional Instructions: Rx: Zofran 4mg Take the zofran every 6-8 hours as needed for nausea control. Take OTC Imodium for diarrhea relief. Continue to drink fluids to stay hydrated, just sips of water, gatorade often but not a lot at once to avoid vomiting. Symptoms may take 24-48 hours to resolve. Eat bland foods or whatever is tolerated. Follow- up in clinic if symptoms worsen or do not resolve. Sepsis Event Note - Evaluation Sepsis Screening Result: No Definite Risk - Focused Exam Vital Signs: Vital Signs Temp Pulse Resp BP Pulse Ox 04/02/19 13:20 98.1 F 84 18 107/66 99 Date Exam was Performed: 04/02/19 Time Exam was Performed: 15:12 - My Orders Last 24 Hours: My Active Orders 04/02/19 13:39 Peripheral IV Care [RC] . DIRECTED Peripheral IV Insertion Adult [OM.PC] Stat - Assessment/Plan Last 24 Hours: My Active Orders 04/02/19 13:39 Peripheral IV Care [RC] . DIRECTED Peripheral IV Insertion Adult [OM.PC] Stat <Iris Salguero - Last Filed: 04/02/19 18:25> Course - Radiology Interpretation Free Text/Narrative:: Abdomen xray: FINDINGS: Gastrointestinal tract: There are nondescript scattered air-fluid levels in the abdomen. No overt distention of bowel loops is seen. Intraperitoneal space: No evidence of intraperitoneal free air. Bones/joints: The spine, sacroiliac joints, and hip joints are normal. Soft tissues: The psoas margins are visualized and appear normal. IMPRESSION: Non-specific bowel pattern. No obvious obstruction is seen. Thank you for allowing us to participate in the care of your patient. Dictated and Authenticated by: Patrick Weiss MD 04/02/2019 2:36 PM Central Time ([place] & [place]) See rad report - Re-Assessments/Exams Free Text/Narrative Re-Assessment/Exam: 04/02/19 18:25 I personally performed or re-performed the physical examination and medical decision making. I have verified all student documentation or findings, including history, physical exam and/or medical decision making. Sepsis Event Note - Focused Exam Date Exam was Performed: 04/02/19 Time Exam was Performed: 18:25
[2019-04-02 14:31] LABS: ANION GAP 11.7; CHLORIDE,CL 104 mmol/L (101-111); SODIUM,NA 134 mmol/L (135-145)
[2019-04-02] MEDS ORDERED: Ondansetron 4 MG/2 ML SDV IVPUSH ONE (14:49)
== END 2019-04-02 15:44 | disposition home or self-care (01) ==
LOC: DL.ED 13:07
DX: A08.4 Viral intestinal infection, unspecified (principal); I10 Essential (primary) hypertension; F32.9 Major depressive disorder, single episode, unspecified; E66.9 Obesity, unspecified; F17.210 Nicotine dependence, cigarettes, uncomplicated; Z88.8 Allergy status to other drugs, medicaments and biological substances; Z79.899 Other long term (current) drug therapy; Z68.32 Body mass index [BMI] 32.0-32.9, adult
CPT/HCPCS: 36415; 74019; 80053; 84484; 85025; 96374; 99284; J2405

== ENCOUNTER 2020-04-13 13:03 | Emergency (ER) | payer OTHER ==
[2020-04-13 13:22] VITALS: BP 150/85; PULSE 90
[2020-04-13] MEDS ORDERED: methylPREDNISolone Sodium Succinate 125 MG/2 ML SDV IVPUSH ONE (13:44)
--- NOTE | 2020-04-13 14:03 | EDM.PDOC ---
ED HPI GENERAL MEDICAL PROBLEM - General Chief Complaint: Back Pain or Injury Stated Complaint: SEVERE BACK PAIN, INJURED A FEW DAYS AGO Time Seen by Provider: 04/13/20 13:35 Source of Information: Reports: Patient History Limitations: Reports: No Limitations - History of Present Illness INITIAL COMMENTS - FREE TEXT/NARRATIVE: This 55 yo male patient reports to the ED with lower back pain that started after twisting his back on Friday. The patient reports he has been taking OTC medications with little symptom relief. The patient has a history of low back pain, DDD and sciatica. The patient is [facility] and has had previous work- ups in the past. Onset Date: 04/10/20 Duration: Constant Location: Reports: Back, Lower Extremity, Left Quality: Reports: Ache Severity: Severe Improves with: Reports: Rest Worsens with: Reports: Movement Context: Reports: Activity Left Lower Back Pain Score (Numeric/FACES): 6 - Related Data Allergies Allergy/AdvReac Type Severity Reaction Status Date / Time bupropion HCl Allergy Agitation Verified 04/13/20 13:22 [From Wellbutrin] hydrochlorothiazide AdvReac Dizziness Verified 04/13/20 13:22 Home Meds: Home Meds ClonazePAM [KlonoPIN] 0.25 mg PO TID PRN 05/12/16 [History] Ibuprofen 800 mg PO ASDIRECTED PRN 07/11/17 [History] Losartan [Cozaar] 75 mg PO DAILY 07/15/17 [History] Past Medical History HEENT History: Reports: Impaired Vision Cardiovascular History: Reports: Hypertension Respiratory History: Reports: None Gastrointestinal History: Reports: GERD, Helicobacter Pylori, Irritable Bowel Syndrome, Other (See Below) Genitourinary History: Reports: None Musculoskeletal History: Reports: Back Pain, Chronic, Fracture, Other (See Below) Other Musculoskeletal History: SCIATICA, CARPEL TUNNEL, FX BILATERAL ANKLES (NO SURGERY) Neurological History: Reports: Concussion Psychiatric History: Reports: Anxiety, Depression, Panic Attack, PTSD Endocrine/Metabolic History: Reports: Obesity/BMI 30+, Other (See Below) Other Endocrine/Metabolic History: METABOLIC SYNDROME Hematologic History: Reports: None Immunologic History: Reports: None Oncologic (Cancer) History: Reports: None Dermatologic History: Reports: None - Infectious Disease History Infectious Disease History: Reports: Chicken Pox, Measles, Mumps - Past Surgical History Head Surgeries/Procedures: Reports: None HEENT Surgical History: Reports: Tonsillectomy Cardiovascular Surgical History: Reports: None Respiratory Surgical History: Reports: None GI Surgical History: Reports: Colonoscopy, Polypectomy Male Surgical History: Reports: None Endocrine Surgical History: Reports: None Neurological Surgical History: Reports: None Oncologic Surgical History: Reports: None Dermatological Surgical History: Reports: None Social & Family History - Family History Family Medical History: No Pertinent Family History Neurological: Reports: Alzheimers Disease Endocrine/Metabolic: Reports: Osteoporosis Oncologic: Reports: Breast - Tobacco Use Tobacco Use Status *Q: Current Every Day Tobacco User Years of Tobacco use: 30 Packs/Tins Daily: 1 Second Hand Smoke Exposure: No - Caffeine Use Caffeine Use: Reports: Soda Other Caffeine Use: 5 coke a day - Recreational Drug Use Recreational Drug Use: No - Living Situation & Occupation Living situation: Reports: Single (Was x 2 years. 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 ED EXAM,LOWER BACK PAIN/INJURY - Physical Exam Exam: See Below Exam Limited By: No Limitations General Appearance: Alert, WD/WN, Moderate Distress Eye Exam: Bilateral Eye: EOMI, Normal Inspection, PERRL Ears: Normal External Exam, Normal Canal, Hearing Grossly Normal, Normal TMs Nose: Normal Inspection, Normal Mucosa, No Blood Throat/Mouth: Normal Inspection, Normal Lips, Normal Teeth, Normal Gums, Normal Oropharynx, Normal Voice, No Airway Compromise Head: Atraumatic, Normocephalic Neck: Normal Inspection Respiratory/Chest: No Respiratory Distress, Lungs Clear, Normal Breath Sounds, No Accessory Muscle Use, Chest Non-Tender Cardiovascular: Normal Peripheral Pulses, Regular Rate, Rhythm, No Edema, No Gallop, No JVD, No Murmur, No Rub GI/Abdominal: Normal Bowel Sounds, Soft, Non-Tender, No Organomegaly, No Distention, No Abnormal Bruit, No Mass (Male) Exam: Deferred Rectal (Males) Exam: Deferred Back Exam: Decreased Range of Motion, Muscle Spasm, Paraspinal Tenderness (left lower back), Vertebral Tenderness Extremities: Normal Inspection, Normal Range of Motion, Non-Tender, No Pedal Edema, Normal Capillary Refill Neurological: Alert, Normal Mood/Affect, Normal Dorsiflexion, CN II-XII Intact, Normal Plantar Flexion, Normal Gait, Normal Reflexes, No Motor/Sensory Deficits, Oriented x 3 Psychiatric: Normal Affect, Normal Mood Skin Exam: Warm, Dry, Intact, Normal Color, No Rash Lymphatic: No Adenopathy Course - Vital Signs Last Recorded V/S: Last Vital Signs Temp 36.8 C 04/13/20 13:15 Pulse 90 04/13/20 13:15 Resp 20 04/13/20 13:15 BP 150/85 H 04/13/20 13:15 Pulse Ox 97 04/13/20 13:15 - Orders/Labs/Meds Meds: Medications Discontinued Medications Generic Name Dose Route Start Last Admin Trade Name Freq PRN Reason Stop Dose Admin Methylprednisolone Sodium Succinate 125 mg 04/13/20 13:44 04/13/20 13:53 Solu-Medrol IVPUSH 04/13/20 13:45 125 mg ONETIME ONE Administration Departure - Departure Time of Disposition: 14:04 Disposition: Home, Self-Care 01 Condition: Fair Clinical Impression: Lumbar degenerative disc disease Sciatica Qualifiers: Laterality: left Qualified Code(s): M54.32 - Sciatica, left side Low back pain Qualifiers: Chronicity: chronic Back pain laterality: left Sciatica presence: with sciatica Sciatica laterality: sciatica of left side Qualified Code(s): M54.42 - Lumbago with sciatica, left side; G89.29 - Other chronic pain - Discharge Information *PRESCRIPTION DRUG MONITORING PROGRAM REVIEWED*: Yes *COPY OF PRESCRIPTION DRUG MONITORING REPORT IN PATIENT WON: Yes Instructions: Chronic Back Pain, [id number], Muscle Strain, [id number] Care Plan Goals: The patient was advised of the examination results during the visit. The patient was given an IV dose Solumedrol (125 mg) while in the ED. The patient was discharged with scripts for Prednisone (20 mg) #10 to take 2 by mouth for 5 days, Flexeril (10 mg) #20 to take 1 by mouth at bedtime as needed and [place] (10/325) #10 to take 1 by mouth every 6 hours as needed for pain. If the patient has any additional symptoms or concerns, the patient should either return to the emergency department or visit his primary care facility. Sepsis Event Note (ED) - Evaluation Sepsis Screening Result: No Definite Risk - Focused Exam Vital Signs: Vital Signs Temp Pulse Resp BP Pulse Ox 04/13/20 13:15 36.8 C 90 20 150/85 H 97
== END 2020-04-13 14:25 | disposition home or self-care (01) ==
LOC: DL.ED 13:03
DX: M51.16 Intervertebral disc disorders with radiculopathy, lumbar region (principal); I10 Essential (primary) hypertension; E66.9 Obesity, unspecified; Z68.32 Body mass index [BMI] 32.0-32.9, adult; Z72.0 Tobacco use; Z88.8 Allergy status to other drugs, medicaments and biological substances; Z79.899 Other long term (current) drug therapy
CPT/HCPCS: 96374; 99283; J2930

== ENCOUNTER 2020-05-17 16:38 | Emergency (ER) | payer OTHER ==
[2020-05-17] MEDS ORDERED: Sodium Chloride 0.9% 10 ML Syringe FLUSH PRN (16:48)
--- NOTE | 2020-05-17 17:13 | CR ---
PROCEDURE INFORMATION: Exam: XR Chest Exam date and time: 05/17/2020 5:01 PM Age: 55 years old Clinical indication: Other: Near syncope TECHNIQUE: Imaging protocol: XR of the chest Views: 1 view. COMPARISON: CR Chest 1V Frontal 03/31/2019 5:16 PM FINDINGS: Lungs: The lungs are symmetric, well expanded and clear. Pleural spaces: There are no pleural effusions. There is no pneumothorax. Heart/Mediastinum: The heart size is normal as are the mediastinal and hilar contours. The pulmonary vessels are normal. Bones/joints: No acute osseous pathology is identified. IMPRESSION: No acute cardiopulmonary disease process identified.
[2020-05-17 17:26] LABS: ANION GAP 11.3 mEq/L (7-13); CHLORIDE,CL 102 mmol/L (98-107); SODIUM,NA 138 mmol/L (136-145)
--- NOTE | 2020-05-17 17:45 | EDM.PDOC ---
<MadelinKarlene - Last Filed: 05/17/20 18:13> ED HPI GENERAL MEDICAL PROBLEM - General Chief Complaint: General Stated Complaint: AMBULANCE Time Seen by Provider: 05/17/20 17:36 Source of Information: Reports: Patient History Limitations: Reports: No Limitations - History of Present Illness INITIAL COMMENTS - FREE TEXT/NARRATIVE: Patient is a 55 y.o. male who presents to the ED via EMS with c/o of dizziness, generalized weakness and nausea. The patient reports he woke up this morning "feeling crappy" and felt dizzy when he stood up. He describes his dizziness as feeling as though he is going to pass out, it is worse when sitting or stading up. He also has associated generalized weakness and nausea, but no events of emesis. The patient reports having a similar event in the past and he had low sodium and potassium. He denies any headaches, rhinorrhea, sore throat, cough, SOB, chest pain, abdominal pain or changes in bowel or urinary habits. He took all his daily medications as prescribed. He has a history of ALTHEA and thinks his symptoms may be related to his anxiety. Onset: Today Location: Reports: Head Improves with: Reports: None Worsens with: Reports: None Associated Symptoms: Reports: Nausea/Vomiting, Weakness - Related Data Allergies Allergy/AdvReac Type Severity Reaction Status Date / Time bupropion HCl Allergy Agitation Verified 05/17/20 17:00 [From Wellbutrin] hydrochlorothiazide AdvReac Dizziness Verified 05/17/20 17:00 Home Meds: Home Meds ClonazePAM [KlonoPIN] 0.25 mg PO TID PRN 05/12/16 [History] Ibuprofen 800 mg PO ASDIRECTED PRN 07/11/17 [History] Losartan [Cozaar] 75 mg PO DAILY 07/15/17 [History] Past Medical History HEENT History: Reports: Impaired Vision Other HEENT History: wears glasses Cardiovascular History: Reports: Hypertension Respiratory History: Reports: None Gastrointestinal History: Reports: GERD, Helicobacter Pylori, Irritable Bowel Syndrome, Other (See Below) Genitourinary History: Reports: None Musculoskeletal History: Reports: Back Pain, Chronic, Fracture, Other (See Below) Other Musculoskeletal History: SCIATICA, CARPEL TUNNEL, FX BILATERAL ANKLES (NO SURGERY) Neurological History: Reports: Concussion Psychiatric History: Reports: Anxiety, Depression, Panic Attack, PTSD Endocrine/Metabolic History: Reports: Obesity/BMI 30+, Other (See Below) Other Endocrine/Metabolic History: METABOLIC SYNDROME Hematologic History: Reports: None Immunologic History: Reports: None Oncologic (Cancer) History: Reports: None Dermatologic History: Reports: None - Infectious Disease History Infectious Disease History: Reports: Chicken Pox, Measles, Mumps - Past Surgical History Head Surgeries/Procedures: Reports: None HEENT Surgical History: Reports: Tonsillectomy Cardiovascular Surgical History: Reports: None Respiratory Surgical History: Reports: None GI Surgical History: Reports: Colonoscopy, Polypectomy Male Surgical History: Reports: None Endocrine Surgical History: Reports: None Neurological Surgical History: Reports: None Oncologic Surgical History: Reports: None Dermatological Surgical History: Reports: None Social & Family History - Family History Family Medical History: No Pertinent Family History Neurological: Reports: Alzheimers Disease Endocrine/Metabolic: Reports: Osteoporosis Oncologic: Reports: Breast - Tobacco Use Tobacco Use Status *Q: Current Every Day Tobacco User Years of Tobacco use: 30 Packs/Tins Daily: 0.5 Second Hand Smoke Exposure: No - Caffeine Use Caffeine Use: Reports: Soda Other Caffeine Use: 5 coke a day - Recreational Drug Use Recreational Drug Use: No - Living Situation & Occupation Living situation: Reports: Single (Was x 2 years. 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 ED EXAM, DIZZINESS - Physical Exam Exam: See Below Exam Limited By: No Limitations General Appearance: Alert, WD/WN, No Apparent Distress, Other (history of anxiety, but patient does not appear anxious on persentation) Eye Exam: Bilateral Eye: EOMI, Normal Inspection, PERRL, Other (No nystagmus ) Ears: Normal External Exam Nose: Normal Inspection, Normal Mucosa, No Blood Throat/Mouth: Normal Inspection, Normal Lips, Normal Teeth, Normal Gums, Normal Oropharynx, Normal Voice, No Airway Compromise Head Exam: Atraumatic, Normocephalic. No: Sinus Tenderness Neck: Normal Inspection, Supple, Non-Tender, Full Range of Motion Respiratory/Chest: No Respiratory Distress, Lungs Clear, Normal Breath Sounds, No Accessory Muscle Use, Chest Non-Tender Cardiovascular: Normal Peripheral Pulses, Regular Rate, Rhythm, No Edema, No Gallop, No JVD, No Murmur, No Rub GI/Abdominal: Normal Bowel Sounds, Soft, Non-Tender, No Organomegaly, No Distention, No Abnormal Bruit, No Mass (Male) Exam: Deferred Rectal (Males) Exam: Deferred Neurological: Alert, Normal Mood/Affect, Normal Dorsiflexion, CN II-XII Intact, Normal Plantar Flexion, Normal Gait, Normal Reflexes, No Motor/Sensory Deficits, Oriented x 3 Back Exam: Normal Inspection, Full Range of Motion, NT Extremities: Normal Inspection, Normal Range of Motion, Non-Tender, No Pedal Edema, Normal Capillary Refill Psychiatric: Normal Affect, Normal Mood Skin Exam: Warm, Dry, Intact, Normal Color, No Rash #1 Interpretation EKG Date: 05/17/20 Rhythm: NSR Spreckels: Normal P-Wave: Present QRS: Normal ST-T: Normal QT: Normal Comparison: No Change (Old Inferior Q waves) Course - Radiology Interpretation Free Text/Narrative:: Chest Xray No acute cardiopulmonary disease process identified. Jennifer Davalos MD Departure - Departure Time of Disposition: 18:14 Disposition: Home, Self-Care 01 Condition: Good Clinical Impression: Dizziness, Anxiety, generalized - Discharge Information *PRESCRIPTION DRUG MONITORING PROGRAM REVIEWED*: No *COPY OF PRESCRIPTION DRUG MONITORING REPORT IN PATIENT WON: No Instructions: Generalized Anxiety Disorder, Adult Forms: ED Department Discharge Care Plan Goals: Discussed the physical exam, lab, and chest xray findings with the patient. He was given 20mg Pepcid in the ED and 20 mg hydroxyzine to take once he gets home. He should not drive once he takes the medication. If the patient continues to feel anxious when he arrives home, he may take one tablet of his clonazepam. He should contact his primary care provider regarding his increased anxiety and current medication regimen. If the patient develops any new or worsening symptoms he should follow up in the ED or with his primary care facility. Sepsis Event Note (ED) - Evaluation Sepsis Screening Result: No Definite Risk <César Sosa - Last Filed: 05/17/20 18:34> Course - Vital Signs Last Recorded V/S: Last Vital Signs Temp 98.4 F 05/17/20 16:50 Pulse 70 05/17/20 17:46 Resp 17 05/17/20 17:46 BP 153/89 H 05/17/20 17:46 Pulse Ox 98 05/17/20 17:46 Orthostatic Blood Pressure [ 151/105 Standing] Orthostatic Blood Pressure [ 138/83 Sitting] - Orders/Labs/Meds Orders: Active Orders 24 hr Category Date Time Status Sodium Chloride 0.9% [Saline Flush] Med 05/17/20 16:48 Active 10 ml FLUSH ASDIRECTED PRN Peripheral IV Insertion Adult [OM.PC] Stat Oth 05/17/20 16:47 Ordered Medication Orders Sodium Chloride (Sodium Chloride 0.9% 10 Ml Syringe) 10 ml FLUSH ASDIRECTED PRN PRN Reason: Keep Vein Open Labs: Laboratory Tests 05/17/20 05/17/20 05/17/20 Range/Units 16:50 16:50 17:05 WBC 8.2 (5.0-10.0) 10^3/uL RBC 4.90 (4.6-6.2) 10^6/uL Hgb 15.0 (14.0-18.0) g/dL Hct 44.6 (40.0-54.0) % MCV 91.0 (80-100) fL MCH 30.6 (27.0-34.0) pg MCHC 33.6 (33.0-35.0) g/dL Plt Count 268 (150-450) 10^3/uL Neut % (Auto) 60.0 (42.2-75.2) % Lymph % (Auto) 26.6 (20.5-50.1) % Sierra % (Auto) 10.2 H (2-8) % Eos % (Auto) 2.8 (1.0-3.0) % Baso % (Auto) 0.4 (0.0-1.0) % Sodium 138 (136-145) mmol/L Potassium 4.3 (3.5-5.1) mmol/L Chloride 102 (98-107) mmol/L Carbon Dioxide 29 (21-32) mmol/L Anion Gap 11.3 (7-13) mEq/L BUN 9 (7-18) mg/dL Creatinine 0.91 (0.70-1.30) mg/dL Est Cr Clr Drug Dosing 93.59 mL/min Estimated GFR (MDRD) > 60 BUN/Creatinine Ratio 9.9 (No establ ref range) Glucose 120 H (74-99) mg/dL POC Glucose 109 H (70-105) mg/dl Calcium 8.5 (8.5-10.1) mg/dL Total Bilirubin 0.4 (0.2-1.0) mg/dL AST 13 L (15-37) U/L ALT 27 (16-63) U/L Alkaline Phosphatase 85 (46-116) U/L Troponin I < 0.017 (0.000-0.056) ng/mL C-Reactive Protein 0.3 (0.0-0.9) mg/dL Total Protein 7.1 (6.4-8.2) g/dL Albumin 3.6 (3.4-5.0) g/dL Globulin 3.5 Albumin/Globulin Ratio 1.0 Amylase 39 (25-115) U/L Lipase 120 (73-393) U/L Urine Color (YELLOW) Urine Appearance (CLEAR) Urine pH (5.0-9.0) Ur Specific [place] (1.005-1.030) Urine Protein (NEGATIVE) Urine Glucose (UA) (NEGATIVE) Urine Ketones (NEGATIVE) Urine Occult Blood (NEGATIVE) Urine Nitrite (NEGATIVE) Urine Bilirubin (NEGATIVE) Urine Urobilinogen (0.2-1.0) mg/dL Ur Leukocyte Esterase (NEGATIVE) Urine RBC /HPF Urine WBC (0-5/HPF) /HPF Ur Epithelial Cells (NOT SEEN) /HPF Urine Bacteria (0-FEW/HPF) /HPF Urine Opiates Screen (NEGATIVE) Ur Oxycodone Screen (NEGATIVE) Urine Methadone Screen (NEGATIVE) Ur Barbiturates Screen (NEGATIVE) U Tricyclic Antidepress (NEGATIVE) Ur Phencyclidine Scrn (NEGATIVE) Ur Amphetamine Screen (NEGATIVE) U Methamphetamines Scrn (NEGATIVE) Urine MDMA Screen (NEGATIVE) U Benzodiazepines Scrn (NEGATIVE) Urine Cocaine Screen (NEGATIVE) U Marijuana (THC) Screen (NEGATIVE) Ethyl Alcohol < 3 (0) mg/dL 05/17/20 05/17/20 Range/Units 17:44 17:44 WBC (5.0-10.0) 10^3/uL RBC (4.6-6.2) 10^6/uL Hgb (14.0-18.0) g/dL Hct (40.0-54.0) % MCV (80-100) fL MCH (27.0-34.0) pg MCHC (33.0-35.0) g/dL Plt Count (150-450) 10^3/uL Neut % (Auto) (42.2-75.2) % Lymph % (Auto) (20.5-50.1) % Sierra % (Auto) (2-8) % Eos % (Auto) (1.0-3.0) % Baso % (Auto) (0.0-1.0) % Sodium (136-145) mmol/L Potassium (3.5-5.1) mmol/L Chloride (98-107) mmol/L Carbon Dioxide (21-32) mmol/L Anion Gap (7-13) mEq/L BUN (7-18) mg/dL Creatinine (0.70-1.30) mg/dL Est Cr Clr Drug Dosing mL/min Estimated GFR (MDRD) BUN/Creatinine Ratio (No establ ref range) Glucose (74-99) mg/dL POC Glucose (70-105) mg/dl Calcium (8.5-10.1) mg/dL Total Bilirubin (0.2-1.0) mg/dL AST (15-37) U/L ALT (16-63) U/L Alkaline Phosphatase (46-116) U/L Troponin I (0.000-0.056) ng/mL C-Reactive Protein (0.0-0.9) mg/dL Total Protein (6.4-8.2) g/dL Albumin (3.4-5.0) g/dL Globulin Albumin/Globulin Ratio Amylase (25-115) U/L Lipase (73-393) U/L Urine Color Yellow (YELLOW) Urine Appearance Clear (CLEAR) Urine pH 6.5 (5.0-9.0) Ur Specific [place] 1.010 (1.005-1.030) Urine Protein Negative (NEGATIVE) Urine Glucose (UA) Negative (NEGATIVE) Urine Ketones Negative (NEGATIVE) Urine Occult Blood Small H (NEGATIVE) Urine Nitrite Negative (NEGATIVE) Urine Bilirubin Negative (NEGATIVE) Urine Urobilinogen 0.2 (0.2-1.0) mg/dL Ur Leukocyte Esterase Negative (NEGATIVE) Urine RBC 0-5 /HPF Urine WBC 0-5 (0-5/HPF) /HPF Ur Epithelial Cells Rare (NOT SEEN) /HPF Urine Bacteria Rare (0-FEW/HPF) /HPF Urine Opiates Screen Negative (NEGATIVE) Ur Oxycodone Screen Negative (NEGATIVE) Urine Methadone Screen Negative (NEGATIVE) Ur Barbiturates Screen Negative (NEGATIVE) U Tricyclic Antidepress Negative (NEGATIVE) Ur Phencyclidine Scrn Negative (NEGATIVE) Ur Amphetamine Screen Negative (NEGATIVE) U Methamphetamines Scrn Negative (NEGATIVE) Urine MDMA Screen Negative (NEGATIVE) U Benzodiazepines Scrn Negative (NEGATIVE) Urine Cocaine Screen Negative (NEGATIVE) U Marijuana (THC) Screen Negative (NEGATIVE) Ethyl Alcohol (0) mg/dL Meds: Medications Generic Name Dose Route Start Last Admin Trade Name Freq PRN Reason Stop Dose Admin Sodium Chloride 10 ml 05/17/20 16:48 Sodium Chloride 0.9% 10 Ml Syringe FLUSH ASDIRECTED PRN Keep Vein Open Discontinued Medications Generic Name Dose Route Start Last Admin Trade Name Freq PRN Reason Stop Dose Admin Famotidine 20 mg 05/17/20 18:12 05/17/20 18:19 Famotidine 20 Mg Tab PO 05/17/20 18:13 20 mg ONETIME ONE Administration Hydroxyzine HCl 25 mg 05/17/20 18:12 05/17/20 18:20 Hydroxyzine Hcl 25 Mg Tab PO 05/17/20 18:13 25 mg ONETIME ONE Administration - Re-Assessments/Exams Free Text/Narrative Re-Assessment/Exam: 05/17/20 18:34 I personally performed or re-performed the physical examination and medical decision making. I have verified all student documentation or findings, including history, physical exam and/or medical decision making. Sepsis Event Note (ED) - Focused Exam Vital Signs: Vital Signs Temp Pulse Resp BP Pulse Ox 05/17/20 17:46 70 17 153/89 H 98 05/17/20 16:50 98.4 F 80 16 166/93 H 98 - My Orders Last 24 Hours: My Active Orders 05/17/20 16:47 Peripheral IV Insertion Adult [OM.PC] Stat 05/17/20 16:48 Sodium Chloride 0.9% [Saline Flush] 10 ml FLUSH ASDIRECTED PRN - Assessment/Plan Last 24 Hours: My Active Orders 05/17/20 16:47 Peripheral IV Insertion Adult [OM.PC] Stat 05/17/20 16:48 Sodium Chloride 0.9% [Saline Flush] 10 ml FLUSH ASDIRECTED PRN
[2020-05-17 17:52] VITALS: BP 153/89; PULSE 70
[2020-05-17] MEDS ORDERED: hydrOXYzine HCl 25 MG Tab PO ONE (18:12)
[2020-05-17] MEDS ORDERED: Famotidine 20 MG Tab PO ONE (18:12)
== END 2020-05-17 18:30 | disposition home or self-care (01) ==
LOC: DL.ED 16:38
DX: F41.1 Generalized anxiety disorder (principal); I10 Essential (primary) hypertension; E66.9 Obesity, unspecified; Z68.34 Body mass index [BMI] 34.0-34.9, adult; Z88.8 Allergy status to other drugs, medicaments and biological substances; Z79.899 Other long term (current) drug therapy; Z72.0 Tobacco use
CPT/HCPCS: 36415; 71045; 80053; 80305; 80307; 81001; 82150; 82962; 83690; 84484; 85025; 86140; 93005; 99285; A9270; 93010; 99284

== ENCOUNTER 2021-03-14 17:10 | Emergency (ER) | payer OTHER ==
[2021-03-14 17:42] VITALS: BP 178/103; PULSE 71
[2021-03-14] MEDS: Acetaminophen 500 MG Tab PO ONE (18:50)
[2021-03-14] MEDS: Ondansetron 4 MG Tab.DIS PO ONE (18:51)
[2021-03-14 18:56] LABS: ANION GAP 8.9 mEq/L (7-13); CHLORIDE,CL 103 mmol/L (98-107); SODIUM,NA 135 mmol/L (136-145)
== END 2021-03-14 20:25 | disposition home or self-care (01) ==
LOC: DL.ED 17:10
DX: R51.9 Headache, unspecified (principal); R11.2 Nausea with vomiting, unspecified; M79.10 Myalgia, unspecified site; I10 Essential (primary) hypertension; K21.9 Gastro-esophageal reflux disease without esophagitis; F17.210 Nicotine dependence, cigarettes, uncomplicated; E66.9 Obesity, unspecified; Z68.30 Body mass index [BMI] 30.0-30.9, adult; Z88.8 Allergy status to other drugs, medicaments and biological substances; Z79.899 Other long term (current) drug therapy; Z86.16 Personal history of COVID-19
CPT/HCPCS: 36415; 71045; 80053; 81001; 82150; 83605; 83690; 83880; 84484; 85025; 86140; 99284-25; A9270-GY

== ENCOUNTER 2021-07-26 11:20 | Emergency (ER) | payer OTHER ==
[2021-07-26 11:49] VITALS: BP 160/96; PULSE 63
[2021-07-26] MEDS ORDERED: Ketorolac 30 MG/ML SDV IM ONE (12:33)
== END 2021-07-26 13:30 | disposition home or self-care (01) ==
LOC: DL.ED 11:20
DX: M54.42 Lumbago with sciatica, left side (principal); I10 Essential (primary) hypertension; F17.210 Nicotine dependence, cigarettes, uncomplicated; E66.9 Obesity, unspecified; Z68.30 Body mass index [BMI] 30.0-30.9, adult; Z88.8 Allergy status to other drugs, medicaments and biological substances; Z79.899 Other long term (current) drug therapy
CPT/HCPCS: 96372; 99283; J1885

== ENCOUNTER 2022-09-29 10:27 | Emergency (ER) | payer OTHER ==
[2022-09-29] MEDS ORDERED: Polyethylene Glycol 3350 Powder 17 GM Packet PO ONE ×2 (11:00→12:40)
[2022-09-29 12:39] VITALS: BP 120/59; PULSE 63
== END 2022-09-29 15:09 | disposition home or self-care (01) ==
LOC: DL.ED 10:27
DX: K59.00 Constipation, unspecified (principal); I10 Essential (primary) hypertension; F17.210 Nicotine dependence, cigarettes, uncomplicated; E66.9 Obesity, unspecified; Z88.8 Allergy status to other drugs, medicaments and biological substances; Z68.27 Body mass index [BMI] 27.0-27.9, adult
CPT/HCPCS: 99283; A9270-GY

== ENCOUNTER 2022-12-13 15:59 | Emergency (ER) | payer OTHER ==
[2022-12-13 16:12] VITALS: BP 146/97; PULSE 99
[2022-12-13] MEDS ORDERED: Dexamethasone 4 MG/ML SDV IM ONE (16:39)
== END 2022-12-13 17:01 | disposition home or self-care (01) ==
LOC: DL.ED 15:59
DX: M54.32 Sciatica, left side (principal); I10 Essential (primary) hypertension; F17.210 Nicotine dependence, cigarettes, uncomplicated; E66.9 Obesity, unspecified; Z68.27 Body mass index [BMI] 27.0-27.9, adult; Z88.8 Allergy status to other drugs, medicaments and biological substances
CPT/HCPCS: 96372; 99283; J1100

== ENCOUNTER 2024-08-12 16:13 | Emergency (ER) | payer OTHER ==
[2024-08-12 16:30] LABS: BASOPHILS PERCENT AUTO 0.2 % (0.0-1.0); EOSINOPHILS PERCENT AUTO 1.9 % (1.0-3.0); HEMATOCRIT 40.9 % (40.0-54.0); HEMOGLOBIN 14.6 g/dL (14.0-18.0); LYMPHOCYTES PERCENT AUTO 26.9 % (20.5-50.1); MEAN CORPUSCULAR HEMOGLOBIN 31.4 pg (27.0-34.0); MEAN CORPUSCULAR HGB CONC 35.7 g/dL (33.0-35.0); MONOCYTES PERCENT AUTO 12.6 % (2-8); NEUTROPHILS PERCENT AUTO 58.4 % (42.2-75.2); PLATELET COUNT,PLT 249 10^3/uL (150-450); RED BLOOD CELL COUNT 4.65 10^6/uL (4.6-6.2); WHITE BLOOD CELL COUNT,WBC 10.2 10^3/uL (5.0-10.0)
[2024-08-12 16:44] LABS: PROTHROMBIN TIME 10.7 SEC (9.0-12.0)
[2024-08-12 16:53] LABS: A/G RATIO 0.9; ALANINE AMINOTRANSFERASE,ALT 32 U/L (16-63); ALBUMIN 3.5 g/dL (3.4-5.0); ALKALINE PHOSPHATASE 85 U/L (46-116); ANION GAP 10.5 mEq/L (7-13); ASPARTATE AMNIOTRANSFERASE,AST 19 U/L (15-37); BILIRUBIN TOTAL 0.6 mg/dL (0.2-1.0); BLOOD UREA NITROGEN,BUN 7 mg/dL (7-18); BUN/CREATININE RATIO 7.9 (No establ ref range); CALCIUM 8.9 mg/dL (8.5-10.1); CARBON DIOXIDE,CO2 31 mmol/L (21-32); CHLORIDE,CL 100 mmol/L (98-107); CREATININE 0.89 mg/dL (0.70-1.30); GLUCOSE RANDOM 73 mg/dL (70-99); LIPASE 36 U/L (16-77); POTASSIUM,K 3.5 mmol/L (3.5-5.1); PROTEIN TOTAL,TP 7.2 g/dL (6.4-8.2); SODIUM,NA 138 mmol/L (136-145)
[2024-08-12 17:07] LABS: ESTIMATED GFR 98 mL/min (>=60)
[2024-08-12] MEDS: GI Cocktail Oral Solution 30 ML PO ONE (17:38)
[2024-08-12 18:29] VITALS: BP 167/111; PULSE 75
== END 2024-08-12 18:22 | disposition home or self-care (01) ==
LOC: DL.ED 16:13
DX: K29.70 Gastritis, unspecified, without bleeding (principal); I10 Essential (primary) hypertension; K21.9 Gastro-esophageal reflux disease without esophagitis; E66.9 Obesity, unspecified; Z88.8 Allergy status to other drugs, medicaments and biological substances; Z79.899 Other long term (current) drug therapy
CPT/HCPCS: 36415; 71045; 80053; 83690; 84484; 85025; 85610; 93005; 99285; A9270

== ENCOUNTER 2024-11-05 05:31 | Day surgery (SDC) | payer OTHER ==
[2024-11-05] MEDS ORDERED: Propofol 200 MG/20 ML SDV IV ONE (05:32)
[2024-11-05] MEDS ORDERED: Lactated Ringers 1,000 ML IV ONE (05:32)
[2024-11-05] MEDS ORDERED: Benzocaine 20% Topical Spray UD MUCMEM ONE (05:32)
[2024-11-05] MEDS ORDERED: Propofol 200 MG/20 ML SDV ONE (06:00)
[2024-11-05] MEDS ORDERED: Benzocaine 20% Topical Spray UD ONE (06:00)
[2024-11-05] MEDS: Lactated Ringers 1,000 ML IV SCH (06:38)
[2024-11-05 08:20] VITALS: BP 134/90; PULSE 71
== END 2024-11-05 08:25 | disposition home or self-care (01) ==
LOC: DL.ENDO 05:31
PROVIDERS: ATTEND Internal Medicine Gastroenterology
DX: R10.13 Epigastric pain (principal); I10 Essential (primary) hypertension; E66.09 Other obesity due to excess calories; G89.29 Other chronic pain; M54.50 Low back pain, unspecified; F17.210 Nicotine dependence, cigarettes, uncomplicated; Z88.8 Allergy status to other drugs, medicaments and biological substances
CPT/HCPCS: 00731; 43239; 88305; A9270; J2704; J7120

== ENCOUNTER 2024-11-12 06:30 | Day surgery (SDC) | payer OTHER ==
[2024-11-12] MEDS: Lactated Ringers 1,000 ML IV SCH (06:58)
[2024-11-12] MEDS ORDERED: Propofol 200 MG/20 ML SDV ONE ×2 (07:06→07:47)
[2024-11-12 08:27] VITALS: PULSE 74
[2024-11-12 08:28] VITALS: BP 151/88
== END 2024-11-12 08:38 | disposition home or self-care (01) ==
LOC: DL.ENDO 06:30
PROVIDERS: ATTEND Internal Medicine Gastroenterology
DX: Z12.11 Encounter for screening for malignant neoplasm of colon (principal); D12.0 Benign neoplasm of cecum; K63.5 Polyp of colon; F41.9 Anxiety disorder, unspecified; F32.A Depression, unspecified; I10 Essential (primary) hypertension; Z88.5 Allergy status to narcotic agent; Z88.8 Allergy status to other drugs, medicaments and biological substances; E66.09 Other obesity due to excess calories; Z86.0101 Personal history of adenomatous and serrated colon polyps; Z79.899 Other long term (current) drug therapy
CPT/HCPCS: 00811; 45385; J7120